=== PATIENT | female | born 1955 | race Hispanic/Latino ===

== ENCOUNTER 2018-05-27 12:30 | Emergency (ER) | payer OTHER ==
[2018-05-27 13:12] LABS: Urine Blood TRACE (NEG); Urine Glucose NEGATIVE (NEG); Urine Protein NEGATIVE (NEG); Urine Specific Gravity 1.015 (1.005-1.030); Urine pH 6.5 (5.0-7.0)
[2018-05-27 13:22] LABS: Urine Bacteria >50 /HPF (<20); Urine Culture Reflex Order NOT NEEDED; Urine RBC <5 /HPF (NONE SEEN)
[2018-05-27 13:50] LABS: Absolute Lymphocytes (CBC) 4.8 K/uL (0.7-4.9); Absolute Monocytes 0.7 K/uL (0.1-1.3); Absolute Neutrophil 3.7 K/uL (1.8-8.0); Basophils % 0.7 % (0-1.3); Eosinophils % 1.1 % (0-4.4); Hematocrit 42.6 % (36.0-45.0); Lymphocytes % 51.4 % (15.3-44.8); MCH 27.6 pg (27.0-35.0); MCV 82.3 fL (80-100); MPV 9.8 fL (7.6-11.3); Monocytes % 7.5 % (3.3-12.3); RBC Red Blood Cell Count 5.18 M/uL (3.86-4.86)
[2018-05-27 14:01] LABS: Albumin 3.7 g/dL (3.4-5.0); Bilirubin Direct 0.2 mg/dL (0-0.2); Bilirubin Total 0.5 mg/dL (0.2-1.0); Potassium 4.2 mmol/L (3.5-5.1); Protein, Total 8.1 g/dL (6.4-8.2)
--- NOTE | 2018-05-27 16:47 | ER ---
Nurse's Notes [facility] Name: Nancy Burgos Age: 63 yrs Sex: Female : 1955 Arrival Date: 05/27/2018 Time: 12:34 Bed 5 Private MD: Diagnosis: Cystitis;Vaginitis, vulvitis and vulvovaginitis in diseases classified elsewhere Presentation: 05/27 12:44 Presenting complaint: Patient states: burning with urination, lower abd pain, and lower aa5 back pain that began 5 days ago. pt states "I think I also have a vaginal infection". Pt states "my stool was black and with blood this morning ". Transition of care: patient was not received from another setting of care. Onset of symptoms was May 2018. Risk Assessment: Do you want to hurt yourself or someone else? Patient reports no desire to harm self or others. Initial Sepsis Screen: Does the patient meet any 2 criteria? No. Patient's initial sepsis screen is negative. Does the patient have a suspected source of infection? No. Patient's initial sepsis screen is negative. Care prior to arrival: None. 12:44 Method Of Arrival: Ambulatory aa5 12:44 Acuity: ZAINAB 3 aa5 Historical: - Allergies: 12:47 No Known Allergies; aa5 - PMHx: 12:47 Diabetes - IDDM; Breast Cancer; aa5 - PSHx: 12:47 left mastectomy; Appendectomy; Cholecystectomy; Tonsillectomy; aa5 - Immunization history:: Pneumococcal vaccine is not up to date, Flu vaccine is not up to date. - Social history:: Smoking status: Patient/guardian denies using tobacco. - Ebola Screening: : No symptoms or risks identified at this time. Screenin:10 Abuse screen: Denies threats or abuse. Denies injuries from another. Nutritional sg screening: No deficits noted. Tuberculosis screening: No symptoms or risk factors identified. Never had TB. Fall Risk None identified. Assessment: 13:10 General: Appears in no apparent distress. comfortable, well groomed, well developed, sg well nourished, Behavior is calm, cooperative, appropriate for age. Pain: Complains of pain in right lower quadrant and left lower quadrant Quality of pain is described as aching, sharp. Neuro: Level of Consciousness is awake, alert, obeys commands, Oriented to person, place, time, situation, Nursery Supervisor are equal bilaterally Moves all extremities. Full function Gait is steady, Speech is normal, Facial symmetry appears normal. Cardiovascular: Capillary refill is brisk in bilateral fingers Patient's skin is warm and dry. Respiratory: Respiratory effort is even, unlabored, Respiratory pattern is regular, symmetrical. Respiratory:. GI: No signs and/or symptoms were reported involving the gastrointestinal system. : Reports pain in bilateral flank(s), with urination, urinary frequency. EENT: No signs and/or symptoms were reported regarding the EENT system. Derm: Skin is pink, warm \\T\\ dry. Musculoskeletal: No signs and/or symptoms reported regarding the musculoskeletal system. 14:15 Reassessment: Patient appears in no apparent distress at this time. Patient and/or tl3 family updated on plan of care and expected duration. Pain level reassessed. Patient is alert, oriented x 3, equal unlabored respirations, skin warm/dry/pink. no needs at this time. Vital Signs: 12:47 BP 146 / 82; Pulse 74; Resp 16 S; Temp 98.8(O); Pulse Ox 97% on R/A; Weight 72.12 kg aa5 (R); Height 5 ft. 4 in. (162.56 cm) (R); Pain 5/10; 14:15 BP 129 / 71; Pulse 70; Resp 18; Pulse Ox 97% ; tl3 15:30 BP 118 / 78; Pulse 72; Resp 18; Pulse Ox 98% on R/A; ph 16:44 BP 122 / 64; Pulse 71; Resp 18; Temp 97.9; Pulse Ox 99% on R/A; ph 12:47 Body Mass Index 27.29 (72.12 kg, 162.56 cm) aa5 ED Course: 12:34 Patient arrived in ED. mr 12:46 Triage completed. aa5 12:46 Arm band placed on. aa5 12:58 Casey Robertson MD is Attending Physician. gs 13:22 Urine collected: clean catch specimen, clear, yellow colored urine. sg 13:23 Missed attempt(s): 20 gauge in right antecubital area. Bleeding controlled, band aid em1 applied, catheter tip intact. 13:30 Brissa De Leon RN is Primary Nurse. ph 13:35 Initial lab(s) drawn, by me, sent to lab. Inserted saline lock: 20 gauge in right iw antecubital area, using aseptic technique. Blood collected. 14:15 Patient has correct armband on for positive identification. Bed in low position. Call tl3 light in reach. Side rails up X 1. Pulse ox on. NIBP on. Warm blanket given. 14:15 No provider procedures requiring assistance completed. tl3 16:44 Assist provider with pelvic exam: Set up pelvic tray. Performed by Casey Robertson MD ph Specimens sent to lab. Patient tolerated well. Administered Medications: No medications were administered Outcome: 16:47 Discharge ordered by . al 17:12 Patient left the ED. ph Addendum: 05/30/2018 12:06 Addendum: Culture Results: Positive urine culture. Phone call Attempt #1 left voicemail.h b 13:05 Addendum: Culture Results: Positive urine culture. Prescription called-in to pharmacy [facility]. Spoke with daughter, Macrobid 100mg BID x [facility] Signatures: Jamison Contreras, RN RN Noemi Raymundo Irene, RN Panchito Sánchez em1 Jenny Washington RN KUSH aa5 Brissa De Leon RN RN Christianne Willingham, RN Casey Castaneda MD MD Bree Chandler RN RN tl3
--- NOTE | 2018-05-27 16:48 | EDPHYS ---
Physician Documentation [facility] Name: Nancy Burgos Age: 63 yrs Sex: Female : 1955 Arrival Date: 05/27/2018 Time: 12:34 Bed 5 Private MD: ED Physician Casey Robertson HPI: 05/27 18:29 This 63 yrs old Female presents to ER via Ambulatory with complaints of gs Urinary Problem,. 18:30 Onset: The symptoms/episode began/occurred 2 day(s) ago. Associated signs and symptoms: gs Pertinent positives: constipation, dysuria, vaginal discharge. Severity of symptoms: At their worst the symptoms were moderate, in the emergency department the symptoms are unchanged. The patient has experienced similar episodes in the past, a few times. Historical: - Allergies: 12:47 No Known Allergies; aa5 - PMHx: 12:47 Diabetes - IDDM; Breast Cancer; aa5 - PSHx: 12:47 left mastectomy; Appendectomy; Cholecystectomy; Tonsillectomy; aa5 - Immunization history:: Pneumococcal vaccine is not up to date, Flu vaccine is not up to date. - Social history:: Smoking status: Patient/guardian denies using tobacco. - Ebola Screening: : No symptoms or risks identified at this time. ROS: 18:30 Abdomen/GI: Positive for black/tarry stool. gs 18:30 All other systems are negative. Exam: 18:30 Head/Face: Normocephalic, atraumatic. Eyes: Pupils equal round and reactive to light, gs extra-ocular motions intact. Lids and lashes normal. Conjunctiva and sclera are non-icteric and not injected. Cornea within normal limits. Periorbital areas with no swelling, redness, or edema. ENT: Nares patent. No nasal discharge, no septal abnormalities noted. Tympanic membranes are normal and external auditory canals are clear. Oropharynx with no redness, swelling, or masses, exudates, or evidence of obstruction, uvula midline. Mucous membranes moist. Neck: Trachea midline, no thyromegaly or masses palpated, and no cervical lymphadenopathy. Supple, full range of motion without nuchal rigidity, or vertebral point tenderness. No Meningismus. Chest/axilla: Normal chest wall appearance and motion. Nontender with no deformity. No lesions are appreciated. Cardiovascular: Regular rate and rhythm with a normal S1 and S2. No gallops, murmurs, or rubs. Normal PMI, no JVD. No pulse deficits. Respiratory: Lungs have equal breath sounds bilaterally, clear to auscultation and percussion. No rales, rhonchi or wheezes noted. No increased work of breathing, no retractions or nasal flaring. Back: No spinal tenderness. No costovertebral tenderness. Full range of motion. MS/ Extremity: Pulses equal, no cyanosis. Neurovascular intact. Full, normal range of motion. Neuro: Awake and alert, GCS 15, oriented to person, place, time, and situation. Cranial nerves II-XII grossly intact. Motor strength 5/5 in all extremities. Sensory grossly intact. Cerebellar exam normal. Normal gait. 18:30 Constitutional: The patient appears alert, awake. 18:30 Abdomen/GI: Palpation: mild abdominal tenderness, in the suprapubic area. 18:30 Abdomen/GI: Rectal exam: Stool: normal, guaiac negative. 18:30 Back: CVA tenderness, is absent. 18:30 : Pelvic Exam: External exam: is normal, Speculum exam: no cervicitis, bimanual exam reveals no cervical motion tenderness, discharge, white, no cmt white dc will send for culture treat uti and vaginitis. Vital Signs: 12:47 BP 146 / 82; Pulse 74; Resp 16 S; Temp 98.8(O); Pulse Ox 97% on R/A; Weight 72.12 kg aa5 (R); Height 5 ft. 4 in. (162.56 cm) (R); Pain 5/10; 14:15 BP 129 / 71; Pulse 70; Resp 18; Pulse Ox 97% ; tl3 15:30 BP 118 / 78; Pulse 72; Resp 18; Pulse Ox 98% on R/A; ph 16:44 BP 122 / 64; Pulse 71; Resp 18; Temp 97.9; Pulse Ox 99% on R/A; ph 12:47 Body Mass Index 27.29 (72.12 kg, 162.56 cm) aa5 MDM: 13:11 Patient medically screened. gs 18:30 Differential diagnosis: nonspecific abdominal pain, pelvic inflammatory disease, gs urinary tract infection, gi bleed. Data reviewed: vital signs, nurses notes. Response to treatment: the patient's symptoms have markedly improved after treatment, and as a result, I will discharge patient. 05/27 12:59 Order name: Urine Culture 05/27 12:59 Order name: Urine Microscopic Only; Complete Time: 14:12 gs 05/27 13:05 Order name: Basic Metabolic Panel; Complete Time: 14:12 gs 05/27 13:05 Order name: CBC with Diff; Complete Time: 14:12 05/27 13:05 Order name: Hepatic Function; Complete Time: 14:12 05/27 13:05 Order name: Lipase; Complete Time: 14:12 05/27 12:59 Order name: Urine Dipstick-Ancillary (obtain specimen); Complete Time: 13:18 05/27 13:05 Order name: IV Saline Lock; Complete Time: 13:18 05/27 13:05 Order name: Labs collected and sent; Complete Time: 13:18 gs 05/27 13:07 Order name: Urine Dipstick--Ancillary (enter results); Complete Time: 14:12 05/27 15:58 Order name: Pelvic Exam Setup; Complete Time: 15:59 gs Administered Medications: No medications were administered Disposition: 05/27/18 16:47 Discharged to Home. Impression: Cystitis, Vaginitis, vulvitis and vulvovaginitis in diseases classified elsewhere. - Condition is Stable. - Discharge Instructions: Urinary Tract Infection, Adult, Vaginitis. - Prescriptions for Flagyl 500 mg Oral Tablet - take 1 tablet by ORAL route every 12 hours for 7 days; 14 tablet. Keflex 500 mg Oral Capsule - take 1 capsule by ORAL route 3 times per day for 7 days; 21 capsule. - Medication Reconciliation Form, Thank You Letter, Antibiotic Education, Prescription Opioid Use form. - Follow up: Private Physician; When: 2 - 3 days; Reason: Re-evaluation by your physician. Signatures: Dispatcher [employer] Jenny Eckert RN RN aa5 Brissa De Leon RN RN ph Casey Robertson MD MD Corrections: (The following items were deleted from the chart) 17:12 16:47 05/27/2018 16:47 Discharged to Home. Impression: Cystitis; Vaginitis, vulvitis ph and vulvovaginitis in diseases classified elsewhere. Condition is Stable. Forms are Medication Reconciliation Form, Thank You Letter, Antibiotic Education, Prescription Opioid Use. Follow up: Private Physician; When: 2 - 3 days; Reason: Re-evaluation by your physician. gs
== END 2018-05-27 17:12 | disposition home or self-care (01) ==
LOC: ER 12:30
DX: N30.90 Cystitis, unspecified without hematuria (principal); N77.1 Vaginitis, vulvitis and vulvovaginitis in diseases classified elsewhere; Z85.3 Personal history of malignant neoplasm of breast
CPT/HCPCS: 36415; 80048; 80076; 81003; 81015; 83690; 85025; 87077; 87086; 87088; 87186; 99284

== ENCOUNTER 2020-06-26 21:40 | Emergency (ER) | payer MEDICARE ==
--- OUTSIDE RECORDS SUMMARY | 2020-06-26 21:43 | XMS REPORT | Continuity of Care Document ---
:1955 Author Organization [facility] t Address [address] [place] [address] [place] [id number] Care Team Providers Name Role Phone Unavailable Unavailable Unavailable Problems This patient has no known problems. Allergies, Adverse Reactions, Alerts This patient has no known allergies or adverse reactions. Medications This patient has no known medications. Procedures This patient has no known procedures. Results This patient has no known results.
[2020-06-26 22:18] LABS: Urine Blood NEGATIVE (NEG); Urine Glucose 3+ (NEG); Urine Protein NEGATIVE (NEG); Urine pH 7.5 (5.0-7.0)
[2020-06-26 22:47] LABS: Absolute Lymphocytes (CBC) 4.1 K/uL (0.7-4.9); MPV 9.8 fL (7.6-11.3)
[2020-06-26 22:50] LABS: Basophils % 0.6 % (0-1.3); Hematocrit 37.8 % (36.0-45.0); Lymphocytes % 62.6 % (15.3-44.8); RBC Red Blood Cell Count 4.59 M/uL (3.86-4.86)
[2020-06-26 23:08] LABS: ALT/SGPT 40 U/L (12-78); AST/SGOT 32 U/L (15-37); Albumin 3.4 g/dL (3.4-5.0); Alkaline Phosphatase 72 U/L (45-117); BUN Blood Urea Nitrogen 14 mg/dL (7-18); Bicarbonate 27 mmol/L (21-32); Bilirubin Direct 0.1 mg/dL (0-0.2); Bilirubin Total 0.5 mg/dL (0.2-1.0); Glucose Level 380 mg/dL (74-106); Magnesium 1.9 mg/dL (1.8-2.4); NT PRO-BNP 20 pg/mL (<125); Potassium 4.3 mmol/L (3.5-5.1); Protein, Total 7.5 g/dL (6.4-8.2); Sodium Level 137 mmol/L (136-145); Troponin (Emerg Dept Use Only) < 0.02 ng/mL (0.0-0.045)
[2020-06-26] MEDS ORDERED: NA CHLORIDE 0.9% 1,000 ML ONE (23:09)
[2020-06-26 23:13] LABS: Protime INR 1.12
[2020-06-26 23:56] LABS: Blood Morphology Comment NOT SEEN (NOT SEEN); Platelet Estimate ADEQ
[2020-06-27] MEDS ORDERED: INSULIN -REGULAR HUMAN 50 UNIT/0.5 ML ML ONE (00:32)
[2020-06-27] MEDS ORDERED: MECLIZINE HCL 12.5 MG TAB ONE (01:08)
--- NOTE | 2020-06-27 01:21 | ER ---
Nurse's Notes [facility] Name: Nancy Burgos Age: 65 yrs Sex: Female : 1955 Arrival Date: 06/26/2020 Time: 21:42 Bed 14 Private MD: Diagnosis: Vertigo;Diabetes with Hyperglycemia Presentation: 06/26 21:50 Chief complaint: Patient states: Dizziness and weakness for 3 weeks. Sugar today is ll1 above 500. States she just doesn't feel well. + constipation. No fever or cough. Coronavirus screen: Client denies travel out of the [place] in the last 14 days. fatigue, Client presents with at least one sign or symptom that may indicate coronavirus-19. Standard/surgical mask placed on the client. Ebola Screen: Patient denies travel to an Ebola-affected area in the 21 days before illness onset. Initial Sepsis Screen: Does the patient meet any 2 criteria? No. Patient's initial sepsis screen is negative. Does the patient have a suspected source of infection? No. Patient's initial sepsis screen is negative. Risk Assessment: Do you want to hurt yourself or someone else? Patient reports no desire to harm self or others. Onset of symptoms was June 06, 2020. 21:50 Method Of Arrival: Ambulatory ll1 21:50 Acuity: ZAINAB 2 ll1 Historical: - Allergies: 21:52 No Known Allergies; ll1 - PMHx: 21:52 Diabetes - IDDM; breast cancer; Hypertension; ll1 - PSHx: 21:52 left mastectomy; Appendectomy; Cholecystectomy; Tonsillectomy; ll1 - Immunization history:: Flu vaccine is not up to date. - Social history:: Smoking status: Patient denies any tobacco usage or history of. Screenin:00 Abuse screen: Denies threats or abuse. Nutritional screening: No deficits noted. jb4 Tuberculosis screening: No symptoms or risk factors identified. Fall Risk None identified. Assessment: 22:00 General: Appears in no apparent distress. comfortable, Behavior is calm, cooperative, jb4 appropriate for age. Pain: Denies pain. Neuro: Level of Consciousness is awake, alert, obeys commands, Oriented to person, place, time, situation. Cardiovascular: Patient's skin is warm and dry. Respiratory: Airway is patent Respiratory effort is even, unlabored, Respiratory pattern is regular, symmetrical. GI: No signs and/or symptoms were reported involving the gastrointestinal system. : No signs and/or symptoms were reported regarding the genitourinary system. EENT: No signs and/or symptoms were reported regarding the EENT system. Derm: Skin is intact, Skin is pink, warm \T\ dry. Musculoskeletal: Circulation, motion, and sensation intact. Range of motion: intact in all extremities. 23:00 Reassessment: Patient appears in no apparent distress at this time. Patient and/or jb4 family updated on plan of care and expected duration. Pain level reassessed. Patient is alert, oriented x 3, equal unlabored respirations, skin warm/dry/pink. 06/27 00:00 Reassessment: Patient appears in no apparent distress at this time. Patient and/or jb4 family updated on plan of care and expected duration. Pain level reassessed. Patient is alert, oriented x 3, equal unlabored respirations, skin warm/dry/pink. 01:00 Reassessment: Patient appears in no apparent distress at this time. Patient and/or jb4 family updated on plan of care and expected duration. Pain level reassessed. Patient is alert, oriented x 3, equal unlabored respirations, skin warm/dry/pink. 01:42 Reassessment: Patient appears in no apparent distress at this time. Patient and/or jb4 family updated on plan of care and expected duration. Pain level reassessed. Patient is alert, oriented x 3, equal unlabored respirations, skin warm/dry/pink. Vital Signs: 06/26 21:50 BP 133 / 76; Pulse 86; Resp 18; Temp 98.0; Pulse Ox 97% ; Weight 66.68 kg; Height 5 ft. ll1 2 in. (160 cm); Pain 0/10; 23:00 BP 117 / 63; Pulse 90; Resp 16; Pulse Ox 95% on R/A; jb4 23:30 BP 129 / 72; Pulse 71; Resp 16; Pulse Ox 96% on R/A; jb4 06/27 00:15 BP 118 / 71; Pulse 71; Resp 16; Pulse Ox 97% on R/A; jb4 01:00 BP 126 / 77; Pulse 73; Resp 16; Pulse Ox 97% on R/A; jb4 06/26 21:50 Body Mass Index 26.05 (66.68 kg, 160 cm) ll1 ED Course: 06/26 21:42 Patient arrived in ED. bp1 21:52 Triage completed. ll1 21:52 Arm band placed on Patient placed in an exam room, on a stretcher. ll1 21:55 Hi Hess MD is Attending Physician. mh7 22:00 Patient has correct armband on for positive identification. Placed in gown. Bed in low jb4 position. Call light in reach. Side rails up X 1. Pulse ox on. NIBP on. 22:00 Urine collected: clean catch specimen, clear, kizzy colored. jp3 22:00 Patient maintains SpO2 saturation greater than 95% on room air. jp3 22:02 Ollie Thomas, RN is Primary Nurse. jb4 22:35 Initial lab(s) drawn, by me, sent to lab. Inserted saline lock: 20 gauge in right jp3 antecubital area, using aseptic technique. Blood collected. 23:26 XRAY Chest (1 view) In Process Unspecified. EDMS 23:43 CT Head Brain wo Cont In Process Unspecified. EDMS 06/27 01:44 No provider procedures requiring assistance completed. IV discontinued, intact, jb4 bleeding controlled, No redness/swelling at site. Pressure dressing applied. Administered Medications: 06/26 23:00 Drug: NS 0.9% 1000 ml Route: IV; Rate: 1000 ml; Site: right antecubital; jb4 06/27 00:07 Follow up: Response: No adverse reaction; IV Status: Completed infusion; IV Intake: jb4 1000ml 00:22 Drug: Insulin Regular Human 6 units {Co-Signature: jb4 (Ollie Thomas RN).} Route: ad1 Sub-Q; Site: abdomen; :22 Follow up: Response: No adverse reaction; Blood sugar is lowered jb4 00:57 Drug: Meclizine 25 mg Route: PO; jb4 01:45 Follow up: Response: No adverse reaction; Marked relief of symptoms jb4 Intake: 00:07 IV: 1000ml; Total: 1000ml. jb4 Outcome: :21 Discharge ordered by . 7 01:44 Discharged to home ambulatory, with family. jb4 01:44 Condition: stable 01:44 Discharge instructions given to patient, Instructed on discharge instructions, follow up and referral plans. medication usage, Demonstrated understanding of instructions, follow-up care, medications, Prescriptions given X 1. 01:45 Patient left the ED. jb4 Signatures: Dispatcher [employer] EDMS Chrissy Lees RN RN ad1 Ollie Thomas RN RN jb4 Humberto Antony jp3 Chase Sheikh RN RN ll1 Jennifer Dean Maurice, MD MD mh7 Ollie Thomas RN jb4
--- NOTE | 2020-06-27 01:22 | EDPHYS ---
Physician Documentation [facility] Name: Nancy Burgos Age: 65 yrs Sex: Female : 1955 Arrival Date: 06/26/2020 Time: 21:42 Bed 14 Private MD: ED Physician Hi Hess HPI: 06/26 22:48 This 65 yrs old Female presents to ER via Ambulatory with complaints of mh7 Dizziness, High Blood Sugar. 22:48 The patient presents with dizziness, sense of spinning. Onset: The symptoms/episode mh7 began/occurred 3 week(s) ago. Context: occurred at an unknown location, occurred while the patient was sitting, just prior to the episode the patient experienced no apparent symptoms. Modifying factors: The symptoms are alleviated by nothing, the symptoms are aggravated by movement of head. Associated signs and symptoms: Pertinent positives: Pertinent negatives: abdominal pain, agitation, ataxia, blurred vision, chest pain, combativeness, confusion, diaphoresis, focal weakness, head injury, headache, nausea, near-syncope, numbness, palpitations, , seizure, shortness of breath, syncope, tingling, vomiting. Associated signs and symptoms: Pertinent positives: urinary frequency, increased thirst, elevated blood sugar. Severity of symptoms: At their worst the symptoms were moderate 5 day(s) ago, in the emergency department the symptoms have improved moderately. Historical: - Allergies: 21:52 No Known Allergies; ll1 - PMHx: 21:52 Diabetes - IDDM; breast cancer; Hypertension; ll1 - PSHx: 21:52 left mastectomy; Appendectomy; Cholecystectomy; Tonsillectomy; ll1 - Immunization history:: Flu vaccine is not up to date. - Social history:: Smoking status: Patient denies any tobacco usage or history of. ROS: 22:48 Constitutional: Negative for fever, chills, and weight loss, Eyes: Negative for injury, mh7 pain, redness, and discharge, ENT: Negative for injury, pain, and discharge, Neck: Negative for injury, pain, and swelling, Cardiovascular: Negative for chest pain, palpitations, and edema, Respiratory: Negative for shortness of breath, cough, wheezing, and pleuritic chest pain, Abdomen/GI: Negative for abdominal pain, nausea, vomiting, diarrhea, and constipation, Back: Negative for injury and pain, MS/Extremity: Negative for injury and deformity, Skin: Negative for injury, rash, and discoloration, Psych: Negative for depression, anxiety, suicide ideation, homicidal ideation, and hallucinations, Allergy/Immunology: Negative for hives, rash, and allergies, Hematologic/Lymphatic: Negative for swollen nodes, abnormal bleeding, and unusual bruising. Exam: 22:48 Constitutional: This is a well developed, well nourished patient who is awake, alert, mh7 and in no acute distress. Head/Face: Normocephalic, atraumatic. Eyes: Pupils equal round and reactive to light, extra-ocular motions intact. Lids and lashes normal. Conjunctiva and sclera are non-icteric and not injected. Cornea within normal limits. Periorbital areas with no swelling, redness, or edema. ENT: Nares patent. No nasal discharge, no septal abnormalities noted. Tympanic membranes are normal and external auditory canals are clear. Oropharynx with no redness, swelling, or masses, exudates, or evidence of obstruction, uvula midline. Mucous membranes moist. Neck: Trachea midline, no thyromegaly or masses palpated, and no cervical lymphadenopathy. Supple, full range of motion without nuchal rigidity, or vertebral point tenderness. No Meningismus. Chest/axilla: Normal chest wall appearance and motion. Nontender with no deformity. No lesions are appreciated. Cardiovascular: Regular rate and rhythm with a normal S1 and S2. No gallops, murmurs, or rubs. Normal PMI, no JVD. No pulse deficits. Respiratory: Lungs have equal breath sounds bilaterally, clear to auscultation and percussion. No rales, rhonchi or wheezes noted. No increased work of breathing, no retractions or nasal flaring. Abdomen/GI: Soft, non-tender, with normal bowel sounds. No distension or tympany. No guarding or rebound. No evidence of tenderness throughout. Back: No spinal tenderness. No costovertebral tenderness. Full range of motion. Skin: Warm, dry with normal turgor. Normal color with no rashes, no lesions, and no evidence of cellulitis. MS/ Extremity: Pulses equal, no cyanosis. Neurovascular intact. Full, normal range of motion. Neuro: Awake and alert, GCS 15, oriented to person, place, time, and situation. Cranial nerves II-XII grossly intact. Motor strength 5/5 in all extremities. Sensory grossly intact. Cerebellar exam normal. Normal gait. Psych: Awake, alert, with orientation to person, place and time. Behavior, mood, and affect are within normal limits. Vital Signs: 21:50 BP 133 / 76; Pulse 86; Resp 18; Temp 98.0; Pulse Ox 97% ; Weight 66.68 kg; Height 5 ft. ll1 2 in. (160 cm); Pain 0/10; 23:00 BP 117 / 63; Pulse 90; Resp 16; Pulse Ox 95% on R/A; jb4 23:30 BP 129 / 72; Pulse 71; Resp 16; Pulse Ox 96% on R/A; jb4 06/27 00:15 BP 118 / 71; Pulse 71; Resp 16; Pulse Ox 97% on R/A; jb4 01:00 BP 126 / 77; Pulse 73; Resp 16; Pulse Ox 97% on R/A; 4 06/26 21:50 Body Mass Index 26.05 (66.68 kg, 160 cm) ll1 MDM: 01:17 Differential diagnosis: cardiac arrhythmia, hypovolemia, idiopathic dizziness, mh7 near-syncope, syncope, vertigo, Dizziness. Data reviewed: vital signs, nurses notes, lab test result(s), cardiac enzymes, CBC, electrolytes, urinalysis, EKG, radiologic studies, CT scan, plain films. Data interpreted: Pulse oximetry: on room air is 96 %. Interpretation: normal. Counseling: I had a detailed discussion with the patient and/or guardian regarding: the historical points, exam findings, and any diagnostic results supporting the discharge/admit diagnosis, lab results, radiology results, the need for outpatient follow up, to return to the emergency department if symptoms worsen or persist or if there are any questions or concerns that arise at home. Response to treatment: the patient's symptoms have markedly improved after treatment. 01:21 Patient medically screened. [facility] 06/26 22:12 Order name: Urine Dipstick--Ancillary (enter results); Complete Time: 22:19 2 06/26 22:13 Order name: Glucose, Ancillary Testing; Complete Time: 22:19 EDMS 06/26 22:20 Order name: Basic Metabolic Panel; Complete Time: 23:37 [facility] 06/26 22:20 Order name: CBC with Diff; Complete Time: 00:01 [facility] 06/26 22:20 Order name: LFT's; Complete Time: 23:37 7 06/26 22:20 Order name: Magnesium; Complete Time: 23:37 [facility] 06/26 22:20 Order name: NT PRO-BNP; Complete Time: 23:37 [facility] 06/26 22:20 Order name: PT-INR; Complete Time: 23:37 [facility] 06/26 22:20 Order name: Troponin (emerg Dept Use Only); Complete Time: 23:37 7 06/26 22:20 Order name: XRAY Chest (1 view) [facility] 06/26 22:20 Order name: Ketone, Serum; Complete Time: 23:37 [facility] 06/26 23:00 Order name: Manual Differential; Complete Time: 00:01 EDMS 06/27 00:11 Order name: Glucose, Ancillary Testing; Complete Time: 00:20 EDMS 06/27 01:34 Order name: Glucose, Ancillary Testing [facility] 06/26 22:20 Order name: EKG; Complete Time: 22:21 [facility] 06/26 22:20 Order name: Cardiac monitoring; Complete Time: 22:41 [facility] 06/26 22:20 Order name: EKG - Nurse/Tech; Complete Time: 23:10 [facility] 06/26 22:20 Order name: IV Saline Lock; Complete Time: 22:41 [facility] 06/26 22:20 Order name: Labs collected and sent; Complete Time: 22:41 [facility] 06/26 22:20 Order name: O2 Per Protocol; Complete Time: 22:41 [facility] 06/26 22:20 Order name: O2 Sat Monitoring; Complete Time: 22:41 [facility] 06/26 22:21 Order name: CT Head Brain wo Cont [facility] Administered Medications: 06/26 23:00 Drug: NS 0.9% 1000 ml Route: IV; Rate: 1000 ml; Site: right antecubital; 4 06/27 00:07 Follow up: Response: No adverse reaction; IV Status: Completed infusion; IV Intake: jb4 1000ml 00:22 Drug: Insulin Regular Human 6 units {Co-Signature: jb4 (Ollie Thomas RN).} Route: ad1 Sub-Q; Site: abdomen; :22 Follow up: Response: No adverse reaction; Blood sugar is lowered jb4 00:57 Drug: Meclizine 25 mg Route: PO; jb4 01:45 Follow up: Response: No adverse reaction; Marked relief of symptoms jb4 Disposition: 06/27/20 01:21 Discharged to Home. Impression: Vertigo, Diabetes with Hyperglycemia. - Condition is Stable. - Discharge Instructions: Vertigo, [id number], Hyperglycemia, [id number]. - Prescriptions for Meclizine 25 mg Oral Tablet - take 1 tablet by ORAL route every 8 hours As needed; 30 tablet. - Medication Reconciliation Form, Thank You Letter, Antibiotic Education, Prescription Opioid Use form. - Follow up: Private Physician; When: 1 - 2 days; Reason: Worsening of condition, Recheck today's complaints, Continuance of care, Re-evaluation by your physician. - Problem is an ongoing problem. - Symptoms have improved. Signatures: Dispatcher [employer] EDMS Chrissy Lees RN RN ad1 Ollie Thomas RN RN jb4 Chase Sheikh RN RN 1 Hi Hess MD MD mh7 Ollie Thomas RN jb4 Corrections: (The following items were deleted from the chart) 01:45 01:21 06/27/2020 01:21 Discharged to Home. Impression: Vertigo; Diabetes with jb4 Hyperglycemia. Condition is Stable. Forms are Medication Reconciliation Form, Thank You Letter, Antibiotic Education, Prescription Opioid Use. Follow up: Private Physician; When: 1 - 2 days; Reason: Worsening of condition, Recheck today's complaints, Continuance of care, Re-evaluation by your physician. Problem is an ongoing problem. Symptoms have improved. mh7
[2020-06-27 08:06] VITALS: TEMP 98
[2020-06-27 08:12] VITALS: O2SAT 97
[2020-06-27 08:14] VITALS: BP 126/77
--- NOTE | 2020-06-27 10:53 | RAD REPORT ---
EXAM DESCRIPTION: RAD - Chest Single View - 06/26/2020 11:26 pm CLINICAL HISTORY: Dizziness Chest pain. COMPARISON: No comparisons FINDINGS: Portable technique limits examination quality. The lungs are grossly clear. The heart is normal in size. No displaced fractures.Cervical hardware pl ate is present. Left axillary emelia dissection clips. IMPRESSION: No acute intrathoracic process suspected.
--- NOTE | 2020-06-27 13:34 | RAD REPORT ---
CLINICAL HISTORY: 65-year-old female with dizziness and weakness for three weeks. COMPARISON: None. TECHNIQUE: CT brain without contrast. This exam was performed according to our departmental dose opt imization program which includes use of automated exposure control, adjustment of the mA and/or kV ac cording to patient size and/or use of iterative reconstruction technique. FINDINGS: Multifocal regions of patchy hypoattenuation are present in a subcortical and periventricu lar deep white matter distribution, nonspecific; however, most likely represent small vessel ischemic disease, age indeterminate. The ventricles, and sulci are prominent compatible with underlying volume loss. The draper-white betito er differentiation is preserved. There is no mass effect, midline shift, intra- or extra-axial flui d collection/acute hemorrhage. The osseous structures are unremarkable. The paranasal sinuses and mastoid air cells are clear. IMPRESSION: 1. No acute intracranial abnormalities. Nonspecific white matter change most likely sm all vessel ischemic disease, age indeterminate. 2. CT is insensitive for early evaluation of acute stroke. If there is clinical concern for acute ischemia, an MRI may be considered. Electronically signed by: Janet Delacruz MD 06/27/2020 12:07 AM CIRCLE CUTTING SAW OPERATOR Due to temporary technical issues with the PACS/Fluency reporting system, reports are being signed by the in house radiologists without review as a courtesy to insure prompt reporting. The interpreting radiologist is fully responsible for the content of the report.
== END 2020-06-27 01:45 | disposition home or self-care (01) ==
LOC: ER 21:40
DX: E11.65 Type 2 diabetes mellitus with hyperglycemia (principal); I10 Essential (primary) hypertension; Z85.3 Personal history of malignant neoplasm of breast
CPT/HCPCS: 93005; 85025; 80048; 36415; 82010; 83735; 85610; 82947 ×3; 80076; 81003; 84484; 83880; 70450; 71045; 96360; 96372; 99284; J7030

== ENCOUNTER 2021-09-21 09:50 | Emergency (ER) | payer MEDICARE ==
--- OUTSIDE RECORDS SUMMARY | 2021-09-21 09:52 | XMS REPORT | Continuity of Care Document ---
:[address] [facility] t Address [address] [place] [address] Care Team Providers Name Role Phone Mehta_N Attending Clinician Unavailable Sudireddy_R Attending Clinician Unavailable Anderson_C Attending Clinician Unavailable Adejumo_K Attending Clinician Unavailable Supriya Sanders RN Attending Clinician Unavailable Only, Test Attending Clinician Unavailable Iveth OSPINA Attending Clinician IVETH Attending Clinician Unavailable Jhaver_N Attending Clinician Unavailable Doctor Unassigned, Name Attending Clinician Unavailable Bartsch_E Attending Clinician Unavailable Mehta_N Admitting Clinician Unavailable Sudireddy_R Admitting Clinician Unavailable Anderson_C Admitting Clinician Unavailable Adejumo_K Admitting Clinician Unavailable Jhaver_N Admitting Clinician Unavailable Bartsch_E Admitting Clinician Unavailable Payers Payer Name Policy Type Policy Number Effective Date Expiration Date jose [facility] [id number] 2020 (MEDICARE 00:00:00 REPLACEMENT HMO) Problems This patient has no known problems. Allergies, Adverse Reactions, Alerts Allergy Allergy Status Severity Reaction(s) Onset Inactive Treating Comm ents Source Name Type Date Date Clinician NO KNOWN Drug Active Univers ALLERGIE Class [facility] of [facility] Social History Social Habit Start Date Stop Date Quantity Comments Source [facility] Smoking Status Start Date Stop Date Source Never Smoker [facility] Unknown if ever smoked [facility] Medications Ordered Filled Start Stop Current Ordering Indication Dosage Frequency Signature Comments Components Source Medication Medication Date Date Medication? Clinician (SIG) Name Name omega-3 omega-3 No omega-3 [facility] acid ethyl acid ethyl acid ethyl Family esters 1 esters 1 esters 1 Pra ctic gram gram gram e capsule capsule capsule TAKE 2 TAKE 2 TAKE 2 CAPSULES BY CAPSULES BY CAPSULES MOUTH TWICE MOUTH TWICE BY MOUTH DAILY DAILY TWICE DAILY omeprazole omeprazole No omeprazole [facility] 20 mg 20 mg 20 mg Family capsule,del capsule,del capsule,de Practic ayed ayed layed e release release release TAKE 1 TAKE 1 TAKE 1 CAPSULE BY CAPSULE BY CAPSULE BY MOUTH ONCE MOUTH ONCE MOUTH ONCE DAILY DAILY DAILY OneTouch OneTouch No OneTouch Ashley paolo Delica Plus Delica Plus [facility] Family Lancet 33 Lancet 33 Plus Pract ic gauge gauge Lancet 33 e gauge OneTouch OneTouch No OneTouch Ashley paolo Ultra Blue Ultra Blue Ultra Blue Family Test Strip Test Strip Test Strip Practic e Ozempic Ozempic No Ozempic [facility] 0.25 mg or 0.25 mg or 0.25 mg or Family 0.5 mg (2 0.5 mg (2 0.5 mg (2 Practic mg/1.5 mL) mg/1.5 mL) mg/1.5 mL) e subcutaneou subcutaneou subcutaneo s pen s pen us pen injector injector injector INJECT INJECT INJECT 0.25MG 0.25MG 0.25MG WEEKLY WEEKLY WEEKLY UNDER THE UNDER THE UNDER THE SKIN FOR 2 SKIN FOR 2 SKIN FOR 2 WEEKS THEN WEEKS THEN WEEKS THEN INCREASE TO INCREASE TO INCREASE 0.5MG 0.5MG TO 0.5MG WEEKLY WEEKLY WEEKLY Restasis Restasis No Restasis Ashley paolo 0.05 % eye 0.05 % eye 0.05 % eye Family drops in a drops in a drops in a Practic dropperette dropperette dropperett e INSTILL 1 INSTILL 1 e INSTILL DROP INTO DROP INTO 1 DROP EACH EYE EACH EYE INTO EACH TWICE DAILY TWICE DAILY EYE TWICE DAILY rosuvastati rosuvastati No rosuvastat [facility] n 20 mg n 20 mg in 20 mg Famil y tablet TAKE tablet TAKE tablet Practic 1 TABLET BY 1 TABLET BY TAKE 1 e MOUTH ONCE MOUTH ONCE TABLET BY DAILY DAILY MOUTH ONCE DAILY tolterodine tolterodine No tolterodin [facility] ER 2 mg ER 2 mg e ER 2 mg Fami ly capsule,ext capsule,ext capsule,ex Practic ended ended tended e release 24 release 24 release 24 hr TAKE 1 hr TAKE 1 hr TAKE 1 CAPSULE BY CAPSULE BY CAPSULE BY MOUTH ONCE MOUTH ONCE MOUTH ONCE DAILY FOR DAILY FOR DAILY FOR 30 DAYS 30 DAYS 30 DAYS Xiidra 5 % Xiidra 5 % No Xiidra 5 % [facility] eye drops eye drops eye drops Family in a in a in a Practic dropperette dropperette dropperett e e Basaglar Roddyaglar No Basaglar Ashley paolo [facility] U-100 U-100 U-100 Practic Insulin 100 Insulin 100 Insulin e unit/mL (3 unit/mL (3 100 mL) mL) unit/mL (3 subcutaneou subcutaneou mL) s s subcutaneo us BD Insulin BD Insulin No BD Insulin [facility] Syringe Syringe Syringe [facility] Ultra-Fine Ultra-Fine Ultra-Fine Practic 1 mL 31 1 mL 31 1 mL 31 e gauge x gauge x gauge x /16" 16" 12/19" benzonatate benzonatate No benzonatat [facility] 100 mg 100 mg e 100 mg Family capsule capsule capsule Practi c TAKE 1 TAKE 1 TAKE 1 e CAPSULE BY CAPSULE BY CAPSULE BY MOUTH THREE MOUTH THREE MOUTH TIMES DAILY TIMES DAILY THREE NEEDED NEEDED TIMES FOR COUGH FOR COUGH DAILY FOR UP TO 7 FOR UP TO 7 NEEDED FOR DAYS DO NOT DAYS DO NOT COUGH FOR CRUSH OR CRUSH OR UP TO 7 CHEW CHEW DAYS DO NOT CRUSH OR CHEW donepezil donepezil No donepezil [facility] 10 mg 10 mg 10 mg Family tablet tablet tablet Practic e donepezil 5 donepezil 5 No donepezil [facility] mg tablet mg tablet 5 mg Famil y TAKE 1 TAKE 1 tablet Practic TABLET BY TABLET BY TAKE 1 e MOUTH ONCE MOUTH ONCE TABLET BY DAILY DAILY MOUTH ONCE DAILY doxycycline doxycycline No doxycyclin [facility] hyclate 100 hyclate 100 e hyclate Family mg capsule mg capsule 100 mg P ractic TAKE 1 TAKE 1 capsule e CAPSULE BY CAPSULE BY TAKE 1 MOUTH TWICE MOUTH TWICE CAPSULE BY DAILY FOR 7 DAILY FOR 7 MOUTH DAYS DAYS TWICE DAILY FOR 7 DAYS insulin insulin No insulin [facility] lispro lispro lispro [facility] (U-100) 100 (U-100) 100 (U-100) Practic unit/mL unit/mL 100 e subcutaneou subcutaneou unit/mL s pen s pen subcutaneo INJECT 20 INJECT 20 us pen UNITS UNITS INJECT 20 SUBCUTANEOU SUBCUTANEOU UNITS SLY THREE SLY THREE SUBCUTANEO TIMES DAILY TIMES DAILY USLY THREE FOR 90 DAYS FOR 90 DAYS TIMES DAILY FOR 90 DAYS insulin insulin No insulin [facility] lispro lispro lispro Family (U-100) 100 (U-100) 100 (U-100) Practic unit/mL unit/mL 100 e subcutaneou subcutaneou unit/mL s solution s solution subcutaneo us solution letrozole letrozole No letrozole [facility] 2.5 mg 2.5 mg 2.5 mg Family tablet TAKE tablet TAKE tablet Practic 1 TABLET BY 1 TABLET BY TAKE 1 e MOUTH ONCE MOUTH ONCE TABLET BY DAILY DAILY MOUTH ONCE DAILY levothyroxi levothyroxi No levothyrox [facility] ne 75 mcg ne 75 mcg ine 75 mcg Family tablet tablet tablet Practic e losartan losartan No losartan Ashley paolo 100 mg 100 mg 100 mg Family tablet TAKE tablet TAKE tablet Practic 1 TABLET BY 1 TABLET BY TAKE 1 e MOUTH ONCE MOUTH ONCE TABLET BY DAILY DAILY MOUTH ONCE DAILY memantine memantine No memantine [facility] 10 mg 10 mg 10 mg Family tablet TAKE tablet TAKE tablet Practic 1 TABLET BY 1 TABLET BY TAKE 1 e MOUTH TWICE MOUTH TWICE TABLET BY DAILY DAILY MOUTH TWICE DAILY memantine 5 memantine 5 No memantine [facility] mg tablet mg tablet 5 mg Famil y TAKE 1 TAKE 1 tablet Practic TABLET BY TABLET BY TAKE 1 e MOUTH ONCE MOUTH ONCE TABLET BY DAILY DAILY MOUTH ONCE DAILY Vital Signs Vital Name Observation Time Observation Value Comments Source BP Diastolic 2020-09-06 00:00:00 80 mm[Hg] [facility] Height 2020-09-06 00:00:00 63 [in_i] [facility] BMI (Body Mass 2020-09-06 00:00:00 26.7 kg/m2 [facility] Practice BP Systolic 2020-09-06 00:00:00 122 mm[Hg] [facility] Body Weight 2020-09-06 00:00:00 151 [lb_av] [facility] BP Diastolic 2020-08-23 00:00:00 78 mm[Hg] [facility] Height 2020-08-23 00:00:00 63 [in_i] [facility] BMI (Body Mass 2020-08-23 00:00:00 26.9 kg/m2 [facility] BP Systolic 2020-08-23 00:00:00 120 mm[Hg] [facility] Body Weight 2020-08-23 00:00:00 152 [lb_av] [facility] Procedures Procedure Date / Time Performing Clinician Source Performed COVID-19 (MOLECULAR 2020-09-08 19:21:00 Nura Doe [facility] NUCLEIC ACID AMPLIFICATION) ASSIGNMENT OF BENEFITS 2020-09-08 18:56:09 Doctor Unassigned, No [facility] Breast Surgery 2015-09-23 00:00:00 Leonides Hewitt [facility] Practice Removal of Tonsils [facility] Famil y Practice Appendectomy [facility] Family Practice Repair of Meniscus [facility] Famil y Practice Back Surgery [facility] Family Practice Plan of Care Planned Activity Planned Date Details Comments Source Diagnostic Test 2020-09-06 glucose, Leonides westfall Pending 00:00:00 fingerstick, blood Practice [code = glucose, fingerstick, blood] Encounters Start End Encounter Admission Attending Care Care Encounter Source Date/Time Date/Time Type Type Clinicians Facility Department ID 2021-08-17 2021-08-17 Outpatient Mehta_N VFP VFP [id number] [facility] 03:48:00 03:48:00 Family Practic e 2021-07-27 2021-07-27 Outpatient DMG DMG [id number] [facility] 08:00:00 08:00:00 1222 Medica l Group 2021-02-22 2021-02-22 Outpatient Sudireddy_R VFP VFP [id number] [facility] 06:42:00 06:42:00 [id number] Family Practic e 2020-11-21 2020-11-21 Outpatient Anderson_C VFP VFP [id number] [facility] 01:01:00 01:01:00 [id number] Family Practic e 2020-10-17 2020-10-17 Outpatient Anderson_C VFP VFP [id number] [facility] 01:01:00 01:01:00 [id number] Family Practic e 2020-10-06 2020-10-06 Outpatient Adejumo_K VFP VFP [id number] [facility] 03:57:00 03:57:00 [id number] Family Practic e 2020-09-12 2020-09-12 Outpatient Anderson_C VFP VFP [id number] [facility] 01:02:00 01:02:00 [id number] Family Practic e 2020-09-09 2020-09-09 Outpatient Anderson_C VFP VFP [id number] [facility] 07:35:00 07:35:00 [id number] Family Practic e 2020-09-09 2020-09-09 Telephone Bejudith MONTERO [id number] Univers 00:00:00 00:00:00 JUAN Sanders [id number] [facility] [id number] Adam as [id number] [facility] 019 Branch 2020-09-08 2020-09-08 Laboratory Only, Adc Test [facility] [id number] Univers 12:57:19 13:12:19 Only Violeta Lazaro [id number] ity [facility] [id number] [place] [facility] [id number] [facility] 353 Branch 2020-09-08 2020-09-08 Outpatient Thien LAZARO [facility] [id number] Univers 13:00:00 13:00:00 VIOLETA montilla [facility] 2020-09-08 2020-09-08 Outpatient Jhaver_N VFP VFP [id number] [facility] 01:13:00 01:13:00 [id number] Family Practic e 2020-09-08 2020-09-08 Orders Doctor KYLAH [id number] Univers 00:00:00 00:00:00 Only Unassigned, JUAN [id number] ity of [facility] [id number] Adam as [id number] [facility] 009 Branch 2020-09-08 2020-09-08 Letter Doctor KYLAH [id number] Univers 00:00:00 00:00:00 (Out) Unassigned, JUAN [id number] ity of [facility] [id number] Adam as [id number] [facility] 044 Branch 2020-09-06 2020-09-06 Outpatient Adejumo_K VFP VFP [id number] [facility] 12:55:00 12:55:00 [id number] Family Practic e 2020-09-06 2020-09-06 Suresh Perdue VFP [place] - [id number] [facility] 00:00:00 00:00:00 Leonides Hernández MD: [id number] [facility]_SAROJ_Suga e [place] r [facility] [address], ([facility] [place] [address] , Ph. 2020-08-27 2020-08-27 Outpatient Adejumo_K VFP VFP [id number] [facility] 12:48:00 12:48:00 [id number] Family Practic e 2020-08-27 2020-08-27 Outpatient Anderson_C VFP VFP [id number] [facility] 12:48:00 12:48:00 [id number] Family Practic e 2020-08-23 2020-08-23 Outpatient Anderson_C VFP VFP [id number] [facility] 06:04:00 06:04:00 [id number] Family Practic e 2020-08-23 2020-08-23 Cathlyn H VFP [place] - [id number] [facility] 00:00:00 00:00:00 Edgar, [facility] Kash westfall MD: [id number] [facility]_Diana kiara Echavarria r [facility] 175, ([facility] [place] [address] , Ph. 2020-08-20 2020-08-20 Outpatient Bartsch_E VFP VFP [id number] [facility] 12:03:00 12:03:00 [id number] Family Practic e 2020-08-17 2020-08-17 Outpatient Adejumo_K VFP VFP [id number] [facility] 11:45:00 11:45:00 [id number] Family Practic e Results Test Description Test Time Test Comments Results Result Comments Source COVID-19 (MOLECULAR TESTING 2020-09-09 05:47:00 NUCLEIC ACID AMPLIFICATION) Test Item Value Reference Range Interpretation Comme nts SARS-CoV-2 NAAT (test code = Not Detected Not Detected 35724-9) YOSHI (test code = YOSHI) [employer] Aptima SARS-CoV-2 Assay is a nucleic acid amplification test intended for the qualitative detection of RNA from SARS-CoV-2 from nasopharyngeal (MONOTYPE MACHINIST) specimens. ?It is used under Emergency Use Authorization (EUA) by FDA. A positive result is indicative of the presence of SARS-CoV-2 RNA. ?Clinical correlation with patient history and other diagnostic information is necessary to determine patient infection status. A negative (Not Detected) result does not preclude SARS-CoV-2 infection. ?Clinical correlation with patient history and other diagnostic information should be used in patient management decisions. Invalid: Unable to generate a valid test result on this specimen. ?Please submit a new specimen for repeat testing if clinically indicated. Lab Interpretation (test code = Normal 04769-8) [facility]
[2021-09-21 10:09] LABS: Absolute Lymphocytes (CBC) 0.8 K/uL (0.7-4.9); Hematocrit 38.4 % (36.0-45.0); Lymphocytes % 14.2 % (15.3-44.8); MPV 9.8 fL (7.6-11.3); RBC Red Blood Cell Count 4.67 M/uL (3.86-4.86)
[2021-09-21 10:18] LABS: Urine Blood Trace-intact (Negative); Urine Glucose Negative (Negative); Urine Protein Negative (Negative); Urine Specific Gravity 1.015 (1.005-1.030); Urine pH 5.5 (5.0-7.0)
[2021-09-21 10:19] LABS: Protime INR 1.25
[2021-09-21 10:31] LABS: Albumin 3.3 g/dL (3.4-5.0); Bilirubin Direct 0.2 mg/dL (0-0.2); Bilirubin Total 0.5 mg/dL (0.2-1.0); Magnesium 1.8 mg/dL (1.8-2.4); Potassium 4.1 mmol/L (3.5-5.1); Protein, Total 7.8 g/dL (6.4-8.2); Troponin High Sensitivity 10.1 pg/mL (<58.9)
[2021-09-21 10:35] LABS: Urine RBC <5 /HPF (NONE SEEN)
[2021-09-21 10:36] LABS: Urine Bacteria 20-50 /HPF (<20)
--- NOTE | 2021-09-21 11:11 | RAD REPORT ---
EXAM DESCRIPTION: Lupis Single View09/21/2021 10:48 am CLINICAL HISTORY: Fever COMPARISON: 2019 FINDINGS: The lungs appear clear of acute infiltrate. The heart is normal size IMPRESSION: No acute abnormalities displayed
[2021-09-21 12:16] LABS: SARS-COV-2 RT PCR NEGATIVE (NEGATIVE)
[2021-09-21] MEDS ORDERED: NA CHLORIDE 0.9% 100 ML IV ONE (12:35)
[2021-09-21] MEDS ORDERED: CEFTRIAXONE 1000 MG/VIAL ONE (12:35)
--- NOTE | 2021-09-21 13:07 | EDPHYS ---
Physician Documentation [facility] Name: Nancy Burgos Age: 66 yrs Sex: Female : 1955 Arrival Date: 09/21/2021 Time: 09:56 Bed 23 Private MD: ED Physician Sigifredo Linda HPI: 09/21 10:00 This 66 yrs old Female presents to ER via EMS with complaints of Chills. cp 10:00 The patient reports fever, with an emergency department temperature of 100.3 degrees cp Fahrenheit. Patient presents to ED with sudden onset of chills this morning. Family called EMS who reports patient's blood glucose level of 103 and temp of 101. 10:00 Associated signs and symptoms: Pertinent negatives: abdominal pain, altered mental cp status, chest pain, cough, diarrhea, headache, runny nose, skin rash, vomiting. 10:00 Severity of symptoms: in the emergency department the symptoms have improved mildly. cp Historical: - Allergies: 12:39 No Known Allergies; ic1 - Home Meds: 10:22 omeprazole 20 mg Oral cpDR 1 cap once daily [Active]; letrozole 2.5 mg oral tab 1 tab ic1 once daily [Active]; levothyroxine 75 mcg cap 1 cap once daily [Active]; losartan 100 mg oral tab 1 tab once daily [Active]; donepezil 10 mg oral tab 1 tab twice a day [Active]; fenofibrate 160 mg oral tab 1 tab once daily [Active]; rosuvastatin 20 mg oral cpSP 1 cap once daily [Active]; memantine 10 mg oral tab 1 tab 2 times per day [Active]; - PMHx: 10:22 breast cancer; Diabetes - IDDM; Hypertension; ic1 - Immunization history:: Adult Immunizations up to date. - Social history:: Smoking status: Patient denies any tobacco usage or history of. ROS: 10:05 Constitutional: Positive for chills, Negative for body aches, poor PO intake. cp 10:05 ENT: Negative for drainage from ear(s), ear pain, sore throat, difficulty swallowing, difficulty handling secretions. 10:05 Cardiovascular: Negative for chest pain, edema, palpitations. 10:05 Respiratory: Negative for cough, shortness of breath, wheezing. 10:05 Abdomen/GI: Negative for abdominal pain, vomiting, diarrhea, constipation. 10:05 Back: Negative for pain at rest, pain with movement, radiated pain. 10:05 : Negative for urinary symptoms. 10:05 Neuro: Negative for altered mental status, headache, weakness. Exam: 10:10 Constitutional: The patient appears in no acute distress, alert, awake, cp non-diaphoretic, non-toxic, well developed, well nourished. 10:10 Head/Face: Normocephalic, atraumatic. cp 10:10 Eyes: Periorbital structures: appear normal, Pupils: equal, round, and reactive to light and accomodation, Extraocular movements: intact throughout, Conjunctiva: normal, no exudate, no injection, Sclera: no appreciated abnormality, Lids and lashes: appear normal, bilaterally. 10:10 ENT: External ear(s): are unremarkable, Nose: is normal, Mouth: Lips: moist, Oral mucosa: pink and intact, moist, Posterior pharynx: Airway: no evidence of obstruction, patent, Tonsils: are normal in appearance, erythema, is not appreciated, exudate, is not appreciated. 10:10 Neck: ROM/movement: is normal, is supple, without pain, no range of motions limitations. 10:10 Chest/axilla: Inspection: normal. 10:10 Cardiovascular: Rate: tachycardic, Rhythm: regular, Edema: is not appreciated, JVD: is not appreciated. 10:10 Respiratory: the patient does not display signs of respiratory distress, Respirations: normal, no use of accessory muscles, no retractions, labored breathing, is not present, Breath sounds: are clear throughout, no decreased breath sounds, no stridor, no wheezing. 10:10 Abdomen/GI: Inspection: abdomen appears normal, Palpation: abdomen is soft and non-tender, in all quadrants. 10:10 Back: pain, is absent, ROM is normal. 10:10 Skin: cellulitis, is not appreciated, no rash present. 10:10 Neuro: Orientation: to person, place \\T\\ time. Mentation: is normal, Motor: moves all fours, strength is normal, Sensation: is normal. 10:45 ECG was reviewed by the Attending Physician. cp Vital Signs: 09:45 BP 122 / 58; Pulse 101; Resp 16; Pulse Ox 96% on R/A; ic1 10:37 Temp 100.3(O); ic1 12:39 BP 110 / 58; Pulse 101; Resp 16; Pulse Ox 95% on R/A; ic1 13:10 BP 107 / 61; Pulse 93; Resp 16; Pulse Ox 94% on R/A; ic1 MDM: 10:02 Patient medically screened. cp 10:15 Differential diagnosis: viral Infection, bacterial infection, URI, bronchitis, cp pneumonia UTI. 13:05 Data reviewed: vital signs, nurses notes, lab test result(s), EKG, radiologic studies, cp plain films. 13:05 Test interpretation: by ED physician or midlevel provider: ECG, plain radiologic cp studies. Counseling: I had a detailed discussion with the patient and/or guardian regarding: the historical points, exam findings, and any diagnostic results supporting the discharge/admit diagnosis, lab results, radiology results, to return to the emergency department if symptoms worsen or persist or if there are any questions or concerns that arise at home. Response to treatment: the patient's symptoms have markedly improved after treatment, patient is well hydrated. ED course: VSS. Patient reports symptoms improved. Will discharge to home for continued monitoring. Labs reviewed and patient does not appear toxic. 09/21 09:58 Order name: Basic Metabolic Panel; Complete Time: 12:27 cp 09/21 12:27 Interpretation: Normal except: CL 108; GLUC 163; BUN 21; GFR 51. cp 09/21 09:58 Order name: CBC with Diff; Complete Time: 12:27 cp 09/21 12:27 Interpretation: Normal except: MCH 26.3; ESTHER% 79.8; LYM% 14.2. cp 09/21 09:58 Order name: LFT's; Complete Time: 12:27 cp 09/21 13:01 Interpretation: Normal except: AST 40; ALB 3.3; GLOB 4.5; A/G 0.7. cp 09/21 09:58 Order name: Magnesium; Complete Time: 12:27 cp 09/21 09:58 Order name: NT PRO-BNP; Complete Time: 12:27 cp 09/21 09:58 Order name: PT-INR; Complete Time: 12:27 cp 09/21 09:58 Order name: Troponin HS; Complete Time: 12:27 cp 09/21 09:58 Order name: Urine Microscopic Only; Complete Time: 12:27 09/21 13:01 Interpretation: Normal except: UWBC 20-50; UBACT 20-50. 09/21 09:58 Order name: Blood Culture Adult (2) 09/21 09:58 Order name: Lactate; Complete Time: 12:27 09/21 09:58 Order name: Procalcitonin; Complete Time: 12:27 09/21 10:06 Order name: COVID-19/FLU A+B (Document "Date of Onset" if Symptomatic); Complete Time: cp 12:27 09/21 10:18 Order name: Urine Dipstick-Ancillary; Complete Time: 12:27 EDNV 09/21 10:36 Order name: Urine Culture [facility] 09/21 09:58 Order name: XRAY Chest (1 view); Complete Time: 12:27 09/21 09:58 Order name: EKG; Complete Time: 09:59 09/21 09:58 Order name: Cardiac monitoring; Complete Time: 10:30 09/21 09:58 Order name: EKG - Nurse/Tech 09/21 09:58 Order name: IV Saline Lock 09/21 09:58 Order name: Labs collected and sent 09/21 09:58 Order name: O2 Per Protocol; Complete Time: 10:30 09/21 09:58 Order name: O2 Sat Monitoring; Complete Time: 10:30 09/21 09:58 Order name: Urine Dipstick-Ancillary (obtain specimen); Complete Time: 10:30 cp EC:45 Rate is 97 beats/min. Rhythm is regular. OH interval is normal. QRS interval is normal. cp QT interval is normal. T waves are Inverted in lead aVL. Interpreted by me. Reviewed by me. Administered Medications: 12:38 Drug: Rocephin 1 grams - ((cefTRIAXone) 1 grams, NS 0.9% 100 ml) Route: IVPB; Infused ic1 Over: 30 mins; Site: left antecubital; Disposition Summary: 09/21/21 13:06 Discharge Ordered Location: Home cp Problem: new cp Symptoms: have improved cp Condition: Stable cp Diagnosis - UTI/ Urinary tract infection, site not specified cp Followup: cp - With: Private Physician - When: 2 - 3 days - Reason: Recheck today's complaints Discharge Instructions: - Discharge Summary Sheet cp - Urinary Tract Infection, Adult cp Forms: - Medication Reconciliation Form cp - Thank You Letter cp - Antibiotic Education cp - Prescription Opioid Use cp Prescriptions: - Zofran 4 mg Oral Tablet - take 1 tablet by ORAL route every 12 hours As needed; 20 tablet; Refills: 0, cp Product Selection Permitted - Bactrim DS 800-160 mg Oral Tablet - take 1 tablet by ORAL route every 12 hours for 7 days; 14 tablet; Refills: 0, cp Product Selection Permitted Addendum: 09/23/2021 19:13 Co-signature as Attending Physician, Sigifredo Linda MD I agree with the assessment and k dr plan of care. Signatures: Dispatcher [employer] EDMS Sigifredo Linda MD MD [facility] Lee Wilcox PA PA cp Marianna Rahman RN RN ic1 Corrections: (The following items were deleted from the chart) 09/21 11:04 11:01 Constitutional: Positive for chills, Negative for body aches, poor PO intake, cp cp 11:04 11:01 Cardiovascular: Negative for chest pain, edema, palpitations, cp cp 11:04 11:01 Respiratory: Negative for cough, shortness of breath, wheezing, cp cp 11:04 11:01 Abdomen/GI: Negative for abdominal pain, vomiting, diarrhea, constipation, cp cp 11:04 11:01 ENT: Negative for drainage from ear(s), ear pain, sore throat, difficulty cp swallowing, difficulty handling secretions, cp 11:04 11:01 Back: Negative for pain at rest, pain with movement, radiated pain, cp cp 11:04 11:01 : Negative for urinary symptoms, cp cp 11:04 11:01 Neuro: Negative for altered mental status, headache, weakness, cp cp
--- NOTE | 2021-09-21 13:07 | ER ---
Nurse's Notes [facility] Name: Nancy Burgos Age: 66 yrs Sex: Female : 1955 Arrival Date: 09/21/2021 Time: 09:56 Bed 23 Private MD: Diagnosis: UTI/ Urinary tract infection, site not specified Presentation: 09/21 09:45 Chief complaint: Patient states: brought in by ems for fever. Denies cough, sob, or cp. ic1 Coronavirus screen: Vaccine status: Patient reports receiving the 2nd dose of the covid vaccine. Ebola Screen: No symptoms or risks identified at this time. Initial Sepsis Screen: Does the patient meet any 2 criteria? HR > 90 bpm. Does the patient have a suspected source of infection? No. Patient's initial sepsis screen is negative. Risk Assessment: Do you want to hurt yourself or someone else? Patient reports no desire to harm self or others. Onset of symptoms is unknown. 09:45 Method Of Arrival: EMS: [facility] ic1 09:45 Acuity: ZAINAB 3 ic1 Triage Assessment: 10:22 General: Appears in no apparent distress. uncomfortable, Behavior is calm, cooperative. ic1 Pain: Denies pain. EENT: No deficits noted. Neuro: Level of Consciousness is awake, alert, obeys commands, Oriented to person, place. Cardiovascular: Rhythm is regular. Respiratory: No deficits noted. GI: No deficits noted. : Reports burning with urination. Derm: No deficits noted. Musculoskeletal: No deficits noted. Historical: - Allergies: 12:39 No Known Allergies; ic1 - Home Meds: 10:22 omeprazole 20 mg Oral cpDR 1 cap once daily [Active]; letrozole 2.5 mg oral tab 1 tab ic1 once daily [Active]; levothyroxine 75 mcg cap 1 cap once daily [Active]; losartan 100 mg oral tab 1 tab once daily [Active]; donepezil 10 mg oral tab 1 tab twice a day [Active]; fenofibrate 160 mg oral tab 1 tab once daily [Active]; rosuvastatin 20 mg oral cpSP 1 cap once daily [Active]; memantine 10 mg oral tab 1 tab 2 times per day [Active]; - PMHx: 10:22 breast cancer; Diabetes - IDDM; Hypertension; ic1 - Immunization history:: Adult Immunizations up to date. - Social history:: Smoking status: Patient denies any tobacco usage or history of. Screenin:31 Abuse screen: Denies threats or abuse. Denies injuries from another. Nutritional ic1 screening: No deficits noted. Tuberculosis screening: No symptoms or risk factors identified. Fall Risk None identified. No fall in past 12 months (0 pts). Secondary diagnosis (15 points) IV access (20 points). Mental Status- Oriented to own ability (0 pts). Total Fried Fall Scale indicates Low Risk Score (25-44 pts). Side Rails Up X 2 Placed close to Nursing Station Family Present and informed to notify staff if they need to leave bedside As available Patient and Family Educated on Fall Prevention Program and strategies. Assessment: 10:31 Reassessment: See triage. ic1 Vital Signs: 09:45 BP 122 / 58; Pulse 101; Resp 16; Pulse Ox 96% on R/A; ic1 10:37 Temp 100.3(O); ic1 12:39 BP 110 / 58; Pulse 101; Resp 16; Pulse Ox 95% on R/A; ic1 13:10 BP 107 / 61; Pulse 93; Resp 16; Pulse Ox 94% on R/A; ic1 ED Course: 09:56 Patient arrived in ED. bd 09:56 Lee Wilcox PA is PHCP. cp 09:56 Sigifredo Linda MD is Attending Physician. cp 10:22 Triage completed. ic1 10:22 Arm band placed on left wrist. ic1 10:30 Blood Culture Adult (2) Sent. ic1 10:30 Urine Microscopic Only Sent. ic1 10:30 Lactate Sent. ic1 10:30 Procalcitonin Sent. ic1 10:30 Basic Metabolic Panel Sent. ic1 10:30 LFT's Sent. ic1 10:30 Magnesium Sent. ic1 10:30 NT PRO-BNP Sent. ic1 10:30 Troponin HS Sent. ic1 10:31 Patient has correct armband on for positive identification. Placed in gown. Bed in low ic1 position. Call light in reach. Side rails up X2. Adult w/ patient. 10:36 Marianna Rahman, RN is Primary Nurse. ic1 10:41 EKG done, by ED staff. kv1 10:46 court recording monitor on. Pulse ox on. NIBP on. Door closed. Visitors limited. ic1 10:46 No provider procedures requiring assistance completed. Inserted saline lock: 20 gauge ic1 in left antecubital area, using aseptic technique. Blood collected. 10:48 XRAY Chest (1 view) In Process Unspecified. EDMS 13:11 IV discontinued, intact, bleeding controlled, No redness/swelling at site. Pressure ic1 dressing applied. 09/22 00:30 Notified ED physician of a critical lab result(s). Positive Blood cultures aerobic. tw5 Administered Medications: 09/21 12:38 Drug: Rocephin 1 grams - ((cefTRIAXone) 1 grams, NS 0.9% 100 ml) Route: IVPB; Infused ic1 Over: 30 mins; Site: left antecubital; Outcome: 13:06 Discharge ordered by MD. cp 13:10 Discharged to home via wheelchair, with family. ic1 13:10 Condition: stable 13:10 Discharge instructions given to patient, Instructed on discharge instructions, follow up and referral plans. Demonstrated understanding of instructions, follow-up care, medications, Prescriptions given X 2. 13:31 Patient left the ED. ic1 Addendum: 09/26/2021 18:40 Addendum: Culture Results: Positive urine culture. No further action required. Bacteria i w sensitive to prescribed antibiotic. Signatures: Dispatcher [employer] EDMS Aria Schmidt Irene, RN RN Lee Jeffers PA PA cp Wood, Tiffany tw5 Keanu Cheatham Iesha RN RN ic1 Corrections: (The following items were deleted from the chart) 09/21 13:31 13:10 Discharge instructions given to patient, Instructed on discharge instructions, ic1 follow up and referral plans. Demonstrated understanding of instructions, follow-up care, medications, Prescriptions given X 1, ic1
[2021-09-21 13:43] VITALS: TEMP 100.3
[2021-09-21 13:46] VITALS: BP 107/61; O2SAT 94
== END 2021-09-21 13:31 | disposition home or self-care (01) ==
LOC: ER 09:50
DX: N39.0 Urinary tract infection, site not specified (principal); Z20.822 Contact with and (suspected) exposure to COVID-19; I10 Essential (primary) hypertension; E11.9 Type 2 diabetes mellitus without complications
CPT/HCPCS: 93005; 87040 ×2; 87088; 85025; 87086; 80048; 36415; 83735; 87205; 85610; 80076; 83605; 87077 ×2; 87186 ×2; 84484; 84145; 83880; 0240U; 71045; 96374; 99285; 81003; 81015

== ENCOUNTER 2024-02-10 08:20 | Emergency (ER) | payer MEDICARE ==
[2024-02-10 09:58] LABS: Specific Gravity 1.018 (1.005-1.030); Sqamous Epithelial <5 /HPF (None Seen); Transitional Epithelial <5 /HPF (None Seen); Urine Bacteria <20 /HPF (<20); Urine Bilirubin NEGATIVE (Negative); Urine Blood 3+ (Negative); Urine Clarity Extremely Turbid (Clear); Urine Color Light-Yellow (Yellow); Urine Culture Reflex Order REFLEXED; Urine Glucose 4+ (Over) (Negative); Urine Ketones NEGATIVE (Negative); Urine Micro Reflex YN NO BILL MICROSCOPIC; Urine Nitrite NEGATIVE (Negative); Urine Protein 1+ (Negative); Urine RBC >50 /HPF (None Seen); Urine Urobilinogen Normal (Normal); Urine WBC >50 /HPF (<5); Urine Yeast (Budding) Few /HPF (None Seen)
--- NOTE | 2024-02-10 10:47 | RAD REPORT ---
EXAM DESCRIPTION: CT - Stone Protocol - 02/10/2024 10:21 am CLINICAL HISTORY: Hematuria COMPARISON: 2021 TECHNIQUE: Computed axial tomography of the abdomen pelvis was obtained without oral or IV contrast. Lack of IV and oral contrast limits evaluation of solid organs, appendix, bowel, and vessels. Harris l reformatted images were obtained and reviewed. All CT scans are performed using dose optimization technique as appropriate and may include automated exposure control or mA/KV adjustment according to patient size. FINDINGS: A renal calculus is not seen. An ureteral calculus is not noted. A bladder calculus is not present. No hydronephrosis. Bladder wall appears thickened. A cirrhotic liver. Spleen, pancreas and adrenals appear grossly normal There is no evidence of diverticulitis. Cholecystectomy. No adnexal mass IMPRESSION: Negative for a genitourinary calculus Bladder wall appears thickened which may indicate inflammation
--- NOTE | 2024-02-10 10:50 | ER ---
Nurse's Notes [facility] Name: Nancy Burgos Age: 68 yrs Sex: Female : 1955 Arrival Date: 02/10/2024 Time: 08:20 Bed 19 Private MD: Diagnosis: UTI/ Urinary tract infection, site not specified Presentation: 02/09 08:40 Chief complaint: Dysuria x 3 days, blood in urine and suprapubic pain today. hb Coronavirus screen: At this time, the client does not indicate any symptoms associated with coronavirus-19. Ebola Screen: No symptoms or risks identified at this time. Initial Sepsis Screen: Does the patient meet any 2 criteria? No. Patient's initial sepsis screen is negative. Does the patient have a suspected source of infection? No. Patient's initial sepsis screen is negative. Risk Assessment: Do you want to hurt yourself or someone else? Patient reports no desire to harm self or others. Onset of symptoms was February 07, 2024. 08:40 Method Of Arrival: Ambulatory hb 08:40 Acuity: ZAINAB 4 hb Historical: - Allergies: 08:41 No Known Allergies; hb - Home Meds: 11:12 donepezil 10 mg Oral tab 1 tab twice a day [Active]; le1 - PMHx: 08:41 Diabetes - IDDM; breast cancer; Hypertension; hb - PSHx: 08:41 Left Mastectomy (en); hb - Immunization history:: Adult Immunizations up to date. - Infectious Disease History:: Denies. - Social history:: Smoking status: Patient denies any tobacco usage or history of. Screenin:44 [facility] ED Fall Risk Assessment (Adult) History of falling in the last 3 months, rs5 including since admission No falls in past 3 months (0 pts) Confusion or Disorientation No (0 pts) Intoxicated or Sedated No (0 pts) Impaired Gait No (0 pts) Mobility Assist Device Used No (0 pt) Altered Elimination No (0 pt) Score/Fall Risk Level 0 - 2 = Low Risk Oriented to surroundings, Maintained a safe environment. Abuse screen: Denies threats or abuse. Nutritional screening: No deficits noted. Tuberculosis screening: No symptoms or risk factors identified. Assessment: 08:45 General: Appears in no apparent distress. uncomfortable, Behavior is calm, cooperative. rs5 Pain: Complains of pain in suprapubic area Pain does not radiate. Pain currently is 3 out of 10 on a pain scale. Quality of pain is described as aching, Is continuous. Neuro: Level of Consciousness is awake, alert, obeys commands, Oriented to person, place, time, situation. Cardiovascular: Patient's skin is warm and dry. Respiratory: Airway is patent Respiratory effort is even, unlabored, Respiratory pattern is regular, symmetrical. GI: No signs and/or symptoms were reported involving the gastrointestinal system. : Reports burning with urination, dysuria, blood in urine. EENT: No signs and/or symptoms were reported regarding the EENT system. Derm: Skin is intact, Skin is pink, warm \T\ dry. 08:45 Musculoskeletal: Range of motion: intact in all extremities. rs5 09:40 Reassessment: Patient and/or family updated on plan of care and expected duration. Pain rs5 level reassessed. Patient is alert, oriented x 3, equal unlabored respirations, skin warm/dry/pink. 10:48 Reassessment: Patient appears in no apparent distress at this time. hb Vital Signs: 08:40 BP 123 / 58; Pulse 83; Resp 16; Temp 98; Pulse Ox 97% on R/A; Weight 71.67 kg; Height 5 hb ft. 4 in. ; Pain 5/10; 09:40 BP 120 / 63; Pulse 77; Resp 17; Pulse Ox 99% on R/A; rs5 11:17 BP 135 / 69 RA Supine (auto/reg); Pulse 67 RA; Resp 16 S; Temp 98.1(O); Pulse Ox 99% on le1 R/A; 08:40 Body Mass Index 27.12 (71.67 kg, 162.56 cm) hb 08:40 Pain Scale: Adult hb ED Course: 08:25 Patient arrived in ED. mg5 08:41 Triage completed. hb 08:42 Erik Peck MD is Attending Physician. ec2 08:42 Arm band placed on. hb 08:44 Patient has correct armband on for positive identification. Placed in gown. Bed in low rs5 position. Call light in reach. Side rails up X2. 08:44 No provider procedures requiring assistance completed. rs5 08:55 Lissette Ko FNP-C [facility]. 09:12 Urine collected: clean catch specimen, clear. 09:12 UAM Sent. 09:41 Cyril Garibay, RN is Primary Nurse. rs5 10:22 CT Stone Protocol In Process Unspecified. EDMS 10:51 Primary Nurse role handed off by Cyril Garbiay, RN le1 10:51 Brett Robert, RN is Primary Nurse. le1 11:12 Provided Education on: UTI medication. le1 11:18 Patient did not have IV access during this emergency room visit. le1 Administered Medications: 10:55 Drug: Amoxicillin-Clavulanate PO 875 mg PO once Route: PO; le1 10:57 Follow up: Response: No adverse reaction le1 Medication: 09:41 VIS not applicable for this client. rs5 Outcome: 10:49 Discharge ordered by . kb 11:10 Discharged to home ambulatory, le1 11:10 Condition: improved 11:10 Discharge instructions given to patient, family, Instructed on discharge instructions, follow up and referral plans. Demonstrated understanding of instructions, follow-up care, medications, Prescriptions given X 1, 11:18 Patient left the ED. le1 Addendum: 02/13/2024 09:13 Addendum: Culture Results: Positive urine culture. No further action required. Bacteria e b sensitive to prescribed antibiotic. Signatures: Dispatcher [employer] EDLissette Watters FNP-C COMMUNITY RESOURCE OFFICER-CkChristianne Allison RN RN hb Botello, Elizabeth eb Martinez, Zaina Cyril Garibay, KUSH RN rs5 Marce Adams 5 Erik Peck MD MD 2 Brett Robert RN RN le1 Corrections: (The following items were deleted from the chart) 02/09 09:26 09:12 Urinalysis+U.LAB.BRZ drawn and sent. KHADIJAHTX
--- NOTE | 2024-02-10 10:50 | EDPHYS ---
Physician Documentation [facility] Name: Nancy Burgos Age: 68 yrs Sex: Female : 1955 Arrival Date: 02/10/2024 Time: 08:20 Bed 19 Private MD: ED Physician Erik Peck HPI: 02/09 09:12 This 68 yrs old Female presents to ER via Ambulatory with complaints of kb Urinary Problem. 09:12 Pt is a 68 year old female who presents for dysuria, hematuria, urinary frequency and kb suprapubic pain that started 3 days ago. Denies fever, chills, flank pain, n/v/d.. Historical: - Allergies: 08:41 No Known Allergies; hb - Home Meds: 11:12 donepezil 10 mg Oral tab 1 tab twice a day [Active]; le1 - PMHx: 08:41 Diabetes - IDDM; breast cancer; Hypertension; hb - PSHx: 08:41 Left Mastectomy (en); hb - Immunization history:: Adult Immunizations up to date. - Infectious Disease History:: Denies. - Social history:: Smoking status: Patient denies any tobacco usage or history of. ROS: 09:12 Constitutional: As per HPI kb Exam: 09:12 Constitutional: This is a well developed, well nourished patient who is awake, alert, kb and in no acute distress. Head/Face: Normocephalic, atraumatic. ENT: Moist Mucous membranes Cardiovascular: Regular rate Respiratory: Respirations even and unlabored. No increased work of breathing. Talking in full sentences Back: No spinal tenderness. No costovertebral tenderness. Full range of motion. Skin: Warm, dry with normal turgor. Normal color. MS/ Extremity: Pulses equal, no cyanosis. Neurovascular intact. Full, normal range of motion. Neuro: Awake and alert, GCS 15, oriented to person, place, time, and situation. Moves all extremities. Normal gait. 09:12 Abdomen/GI: Inspection: abdomen appears normal, Bowel sounds: normal, Palpation: soft, in all quadrants, mild abdominal tenderness, in the suprapubic area, Vital Signs: 08:40 BP 123 / 58; Pulse 83; Resp 16; Temp 98; Pulse Ox 97% on R/A; Weight 71.67 kg; Height 5 hb ft. 4 in. ; Pain 5/10; 09:40 BP 120 / 63; Pulse 77; Resp 17; Pulse Ox 99% on R/A; rs5 11:17 BP 135 / 69 RA Supine (auto/reg); Pulse 67 RA; Resp 16 S; Temp 98.1(O); Pulse Ox 99% on le1 R/A; 08:40 Body Mass Index 27.12 (71.67 kg, 162.56 cm) hb 08:40 Pain Scale: Adult hb MDM: 08:42 Patient medically screened. ec2 10:48 Data reviewed: vital signs, nurses notes. kb 10:48 Differential diagnosis: uti, cystitis, kidney stone. Counseling: I had a detailed kb discussion with the patient and/or guardian regarding the historical points, exam findings, and any diagnostic results supporting the discharge/admit diagnosis, lab results, radiology results, the need for outpatient follow up, a family practitioner, to return to the emergency department if symptoms worsen or persist or if there are any questions or concerns that arise at home. 02/09 08:42 Order name: UAM; Complete Time: 10:00 ec2 02/09 10:04 Order name: Urine Culture EDMS 02/09 10:00 Order name: CT Stone Protocol; Complete Time: 10:48 kb Administered Medications: 10:55 Drug: Amoxicillin-Clavulanate PO 875 mg PO once Route: PO; le1 10:57 Follow up: Response: No adverse reaction le1 Disposition Summary: 02/10/24 10:49 Discharge Ordered Notes: Location: Home kb Condition: Stable kb Diagnosis - UTI/ Urinary tract infection, site not specified kb Followup: kb - With: Private Physician - When: 2 - 3 days - Reason: Recheck today's complaints, Continuance of care, Re-evaluation by your physician Followup: kb - With: Emergency Department - When: As needed - Reason: Worsening of condition Discharge Instructions: - Discharge Summary Sheet kb - Urinary Tract Infection, Adult, [id number] kb Forms: - Medication Reconciliation Form kb - Antibiotic Education kb - Prescription Opioid Use kb - Patient Portal Instructions kb - Leadership Thank You Letter kb Prescriptions: - Augmentin 875-125 mg Oral Tablet - take 1 tablet ORAL route every 12 hours for 10 days; 20 tablet; Refills: 0, kb Product Selection Permitted Addendum: 02/11/2024 11:49 I was immediately available for consultation during this patient's visit. I did not e c2 personally see the patient or discuss the patient with the JULIAN. . Signatures: Dispatcher [employer] Lissette Kaur, METAL BENCH PATTERNMAKER-C METAL BENCH PATTERNMAKER-CkChristianne Allison RN RN hb Erik Peck MD MD ec2 Brett Robert RN RN le1 Corrections: (The following items were deleted from the chart) 02/09 09:26 08:43 Urinalysis+U.LAB.BRZ ordered. ZUHAIR MOFFETT
[2024-02-10] MEDS ORDERED: AMOX/K CLAV 875 MG TAB ONE (10:54)
[2024-02-10 11:38] VITALS: BP 135/69; TEMP 98.1; O2SAT 99
== END 2024-02-10 11:18 | disposition home or self-care (01) ==
LOC: ER 08:20
DX: N39.0 Urinary tract infection, site not specified (principal)
CPT/HCPCS: 74176; 76377; 81001; 87077; 87086; 87088; 87186; 99284

== ENCOUNTER 2024-03-10 11:50 | Emergency (ER) | payer MEDICARE ==
--- NOTE | 2024-03-10 12:33 | RAD REPORT ---
EXAM DESCRIPTION: RAD - Foot Right 3 View - 03/10/2024 12:23 pm CLINICAL HISTORY: PAIN COMPARISON: <Comparisons> TECHNIQUE: Right foot, 3 views. FINDINGS: No fracture, dislocation or periosteal reaction. Enthesopathy at the Achillis tendon attachment. No air or foreign body in the soft tissues. IMPRESSION: No acute findings. Enthesopathy at the Achilles tendon attachment.
--- NOTE | 2024-03-10 12:38 | EDPHYS ---
Physician Documentation [facility] Name: Nancy Burgos Age: 68 yrs Sex: Female : 1955 Arrival Date: 03/10/2024 Time: 11:50 Bed IW1 Private MD: ED Physician Kenia Levi HPI: 03/10 12:34 This 68 yrs old Female presents to ER via Ambulatory with complaints of Leg gb1 Pain. 12:34 68-year-old female that fell yesterday and slipped in the bathroom and is now having gb1 pain at the top of her right foot. Her ankle is within normal limits and she is able to ambulate although she says she has a 5 out of 10 pain when she does so. When you press on the area at the top of her foot it is painful. She is able to bear weight and walk without assistance.. Historical: - Allergies: 12:10 No Known Allergies; hb - PMHx: 12:10 breast cancer; Diabetes - IDDM; Hypertension; hb - PSHx: 12:10 Left Mastectomy; hb - Immunization history:: Adult Immunizations up to date. - Infectious Disease History:: Denies. - Social history:: Smoking status: Patient denies any tobacco usage or history of. Exam: 12:34 Constitutional: This is a well developed, well nourished patient who is awake, alert, gb1 and in no acute distress. Head/Face: Normocephalic, atraumatic. Cardiovascular: Regular rate and rhythm with a normal S1 and S2. No gallops, murmurs, or rubs. Normal PMI, no JVD. No pulse deficits. Respiratory: Lungs have equal breath sounds bilaterally, clear to auscultation and percussion. No rales, rhonchi or wheezes noted. No increased work of breathing, no retractions or nasal flaring. MS/ Extremity: Pulses equal, no cyanosis. Neurovascular intact. Full, normal range of motion. Patient has an area at the mid dorsum of the foot that is mildly erythematous and tender to light palpation. There is no deformities present. Vital Signs: 12:09 BP 124 / 65; Pulse 80; Resp 16; Temp 97.5; Pulse Ox 96% on R/A; Weight 71.21 kg; Height hb 5 ft. 5 in. ; Pain 02/12; 12:09 Body Mass Index 26.13 (71.21 kg, 165.1 cm) hb 12:09 Pain Scale: Adult hb MDM: 12:07 Patient medically screened. gb1 12:34 Differential diagnosis: dislocation, closed fracture, contusion, abrasion, tendonitis. gb1 Data reviewed: Right foot x-ray is within normal limits. 03/10 12:11 Order name: Foot Right 3 View XRAY; Complete Time: 12:34 gb1 Administered Medications: No medications were administered Disposition Summary: 03/10/24 12:37 Discharge Ordered Notes: Location: Home gb1 Condition: Stable gb1 Diagnosis - Contusion of right foot gb1 Followup: gb1 - With: Private Physician - When: Upon discharge from the Emergency Department - Reason: Re-evaluation by your physician Discharge Instructions: - Discharge Summary Sheet gb1 - Foot Pain gb1 Forms: - Medication Reconciliation Form gb1 - Antibiotic Education gb1 - Prescription Opioid Use gb1 - Patient Portal Instructions gb1 - Leadership Thank You Letter gb1 Prescriptions: - Ibuprofen 800 mg Oral Tablet - take 1 tablet ORAL route every 12 hours As needed take with food; 20 tablet; gb1 Refills: 0, Product Selection Permitted Signatures: Dispatcher [employer] EDChristianne Mayberry RN RN hb Blocker, Gina, MD MD gb1
--- NOTE | 2024-03-10 12:38 | ER ---
Nurse's Notes [facility] Name: Nancy Burgos Age: 68 yrs Sex: Female : 1955 Arrival Date: 03/10/2024 Time: 11:50 Bed IW1 Private MD: Diagnosis: Contusion of right foot Presentation: 03/10 12:09 Chief complaint: Right foot pain after mechanical fall from standing yesterday. hb Coronavirus screen: At this time, the client does not indicate any symptoms associated with coronavirus-19. Ebola Screen: No symptoms or risks identified at this time. Initial Sepsis Screen: Does the patient meet any 2 criteria? No. Patient's initial sepsis screen is negative. Does the patient have a suspected source of infection? No. Patient's initial sepsis screen is negative. Risk Assessment: Do you want to hurt yourself or someone else? Patient reports no desire to harm self or others. Onset of symptoms was March 09, 2024. 12:09 Method Of Arrival: Ambulatory hb 12:09 Acuity: ZAINAB 4 hb Triage Assessment: 12:43 General: Appears in no apparent distress. Behavior is calm, cooperative, appropriate ll1 for age. Historical: - Allergies: 12:10 No Known Allergies; hb - PMHx: 12:10 breast cancer; Diabetes - IDDM; Hypertension; hb - PSHx: 12:10 Left Mastectomy; hb - Immunization history:: Adult Immunizations up to date. - Infectious Disease History:: Denies. - Social history:: Smoking status: Patient denies any tobacco usage or history of. Screenin:43 [facility] ED Fall Risk Assessment (Adult) History of falling in the last 3 months, ll1 including since admission Yes- single mechanical fall (1 pt) Confusion or Disorientation No (0 pts) Intoxicated or Sedated No (0 pts) Impaired Gait Yes (1 pt) Mobility Assist Device Used Yes (1 pt) Altered Elimination No (0 pt) Score/Fall Risk Level 3 or more points = High Risk Maintained a safe environment, Hourly rounding (assess needs \T\ fall precautionary measures) done, Used ambulatory aids as needed (educated on \T\ assisted with). Abuse screen: Denies threats or abuse. Nutritional screening: No deficits noted. Tuberculosis screening: No symptoms or risk factors identified. Assessment: 12:43 General: Appears in no apparent distress. Behavior is calm, cooperative, appropriate ll1 for age. Pain: Complains of pain in right foot. Musculoskeletal: Circulation, motion, and sensation intact. Capillary refill < 3 seconds, Reports pain in right foot. Vital Signs: 12:09 BP 124 / 65; Pulse 80; Resp 16; Temp 97.5; Pulse Ox 96% on R/A; Weight 71.21 kg; Height hb 5 ft. 5 in. ; Pain 7/10; 12:09 Body Mass Index 26.13 (71.21 kg, 165.1 cm) hb 12:09 Pain Scale: Adult hb ED Course: 11:52 Patient arrived in ED. mr 11:53 Kenia Levi MD is Attending Physician. gb1 12:10 Triage completed. hb 12:10 Arm band placed on. hb 12:24 Foot Right 3 View XRAY In Process Unspecified. EDMS 12:43 Patient has correct armband on for positive identification. Provided Education on: ll1 return for worsening symptoms. 12:43 No provider procedures requiring assistance completed. Patient did not have IV access ll1 during this emergency room visit. Administered Medications: No medications were administered Medication: 13:14 VIS not applicable for this client. ll1 Outcome: 12:37 Discharge ordered by . gb1 12:43 Patient left the ED. hb 12:43 Discharged to home ambulatory, ll1 12:43 Condition: stable 12:43 Discharge instructions given to patient, Instructed on discharge instructions, follow up and referral plans. medication usage, Demonstrated understanding of instructions, follow-up care, medications, Prescriptions given X 1, Signatures: Dispatcher [employer] EDAK Noemi Raymundo, Reg Reg mr Christianne Willingham RN RN hb Lewis, Lynsay, RN RN ll1 Kenia Levi MD MD gb1
[2024-03-10 14:50] VITALS: BP 124/65; TEMP 97.5; O2SAT 96
== END 2024-03-10 12:43 | disposition home or self-care (01) ==
LOC: ER 11:50
DX: S90.31XA Contusion of right foot, initial encounter (principal)
CPT/HCPCS: 99283

== ENCOUNTER 2024-09-02 11:38 | Emergency (ER) | payer MEDICARE, OTHER ==
[2024-09-02 12:59] LABS: Absolute Basophils 0.1 K/uL (0-0.5); Absolute Eosinophils 0.1 K/uL (0-0.5); Absolute Lymphocytes (CBC) 2.4 K/uL (0.7-4.9); Absolute Monocytes 0.4 K/uL (0.1-1.3); Absolute Neutrophil 3.2 K/uL (1.8-8.0); Eosinophils % 1.3 % (0-4.4); Hematocrit 40.7 % (36.0-45.0); Hemoglobin 13.6 g/dL (12.0-15.0); Lymphocytes % 38.9 % (15.3-44.8); MCH 27.2 pg (27.0-35.0); MCHC 33.3 g/dL (32.0-36.0); MCV 81.6 fL (80-100); MPV 9.5 fL (7.6-11.3); Monocytes % 6.9 % (3.3-12.3); Neutrophils % 51.9 % (41.7-73.7); Platelets 206 thou/uL (152-406); Red Cell Distribution Width 14.1 % (12.1-15.2)
[2024-09-02 13:25] LABS: Anion Gap 9.1 mEq/L (5.0-15.0); Potassium 4.1 mEq/L (3.5-5.1)
[2024-09-02] MEDS ORDERED: INSULIN REGULAR (HUMAN) 100 UNIT/ML ONE (13:27)
[2024-09-02] MEDS ORDERED: NA CHLORIDE 0.9% 1,000 ML ONE (13:28)
--- NOTE | 2024-09-02 15:28 | ER ---
Nurse's Notes [facility] Name: Nancy Burgos Age: 69 yrs Sex: Female : 1955 Arrival Date: 09/02/2024 Time: 11:38 Bed 20 Private MD: Diagnosis: Diabetes mellitus due to underlying condition with hyperglycemia Presentation: 09/02 11:54 Chief complaint: Patient states: she was sent by her dr for having high blood sugar. ap3 patient denies any nausea or vomiting. Coronavirus screen: At this time, the client does not indicate any symptoms associated with coronavirus-19. Ebola Screen: No symptoms or risks identified at this time. Initial Sepsis Screen: Does the patient meet any 2 criteria? No. Patient's initial sepsis screen is negative. Does the patient have a suspected source of infection? No. Patient's initial sepsis screen is negative. Risk Assessment: Do you want to hurt yourself or someone else? Patient reports no desire to harm self or others. Onset of symptoms is unknown. 11:54 Method Of Arrival: Ambulatory ap3 11:54 Acuity: ZAINAB 3 ap3 Triage Assessment: 11:55 General: Appears in no apparent distress. Behavior is calm, cooperative, appropriate ap3 for age. Pain: Denies pain. Neuro: Level of Consciousness is awake, alert, obeys commands, Oriented to person, place, time, situation, Appropriate for age. Cardiovascular: Patient's skin is warm and dry. Respiratory: Airway is patent Respiratory effort is even, unlabored, Respiratory pattern is regular, symmetrical. Historical: - Allergies: 11:55 No Known Allergies; ap3 - PMHx: 11:55 breast cancer; Diabetes - IDDM; Hypertension; ap3 - PSHx: 11:55 Left Mastectomy; ap3 - Immunization history:: Client reports having NOT received the Covid vaccine. - Infectious Disease History:: Denies. - Social history:: Smoking status: Patient denies any tobacco usage or history of. Screenin:56 [facility] ED Fall Risk Assessment (Adult) History of falling in the last 3 months, ap3 including since admission No falls in past 3 months (0 pts) Confusion or Disorientation No (0 pts) Intoxicated or Sedated No (0 pts) Impaired Gait No (0 pts) Mobility Assist Device Used No (0 pt) Altered Elimination No (0 pt) Score/Fall Risk Level 0 - 2 = Low Risk Oriented to surroundings, Maintained a safe environment, Educated pt \T\ family on fall prevention, incl call for assistance when getting out of bed, Assessed \T\ reinforced patient's understanding of fall precautions, Hourly rounding (assess needs \T\ fall precautionary measures) done, Used ambulatory aids as needed (educated on \T\ assisted with), Used gait belt as appropriate. Abuse screen: Denies threats or abuse. Nutritional screening: No deficits noted. Tuberculosis screening: No symptoms or risk factors identified. Assessment: 12:35 General: Appears comfortable, Behavior is calm, cooperative. Pain: Denies pain. Neuro: ha1 Level of Consciousness is awake, alert, obeys commands, Oriented to person, place, time, situation. Cardiovascular: Capillary refill < 3 seconds Patient's skin is warm and dry. Respiratory: Airway is patent Respiratory effort is even, unlabored, Respiratory pattern is regular, symmetrical. GI: Abdomen is round non-distended, Reports elevated glucose level. : No signs and/or symptoms were reported regarding the genitourinary system. Derm: Skin is pink, warm \T\ dry. Musculoskeletal: Circulation, motion, and sensation intact. Range of motion: intact in all extremities. 13:23 Reassessment: Patient and/or family updated on plan of care and expected duration. Pain ha1 level reassessed. Patient is alert, oriented x 3, equal unlabored respirations, skin warm/dry/pink. 14:11 Reassessment: Patient and/or family updated on plan of care and expected duration. Pain ha1 level reassessed. Patient is alert, oriented x 3, equal unlabored respirations, skin warm/dry/pink. 15:00 Reassessment: Patient and/or family updated on plan of care and expected duration. Pain ha1 level reassessed. Patient is alert, oriented x 3, equal unlabored respirations, skin warm/dry/pink. 15:59 Reassessment: Patient and/or family updated on plan of care and expected duration. Pain ha1 level reassessed. Patient is alert, oriented x 3, equal unlabored respirations, skin warm/dry/pink. Vital Signs: 11:54 BP 133 / 67; Pulse 66; Resp 17; Temp 97.9; Pulse Ox 97% ; Weight 69.4 kg; Height 5 ft. ap3 4 in. ; 13:00 BP 104 / 62; Pulse 62; Resp 17 S; Pulse Ox 98% on R/A; ha1 14:00 BP 117 / 64; Pulse 63; Resp 17 S; Pulse Ox 97% on R/A; ha1 15:00 BP 128 / 72; Pulse 66; Resp 18 S; Pulse Ox 97% on R/A; ha1 15:59 BP 117 / 71; Pulse 67; Resp 17 S; Pulse Ox 97% on R/A; ha1 11:54 Body Mass Index 26.26 (69.40 kg, 162.56 cm) ap3 ED Course: 11:41 Patient arrived in ED. ra3 11:44 Garcia Purvis DO is Attending Physician. ms3 11:55 Triage completed. ap3 11:56 Arm band placed on right wrist. ap3 12:30 Patient has correct armband on for positive identification. Placed in gown. Bed in low ha1 position. Call light in reach. Side rails up X 1. Adult w/ patient. 12:53 BMP Sent. ss 12:53 CBC with Diff Sent. ss 12:53 Inserted saline lock: 22 gauge in left antecubital area, using aseptic technique. Blood ss collected. Flushed with 10 mL NS. 13:12 Maria Alejandra Marrero, KUSH is Primary Nurse. ha1 13:29 Notified ED physician of a critical lab result(s). Glucose 434. ph 15:27 Tomy Musa MD is Referral Physician. ms3 15:59 No provider procedures requiring assistance completed. IV discontinued, intact, ha1 bleeding controlled, No redness/swelling at site. Pressure dressing applied. 16:00 Provided Education on: follow ups . ha1 Administered Medications: 13:34 Drug: NS 0.9% IV 1000 ml IV at 1000 ml once; to be given as a bolus over 60 minutes ha1 Route: IV; Rate: 1000 ml; Site: left antecubital; 14:40 Follow up: Response: No adverse reaction; IV Status: Completed infusion; IV Intake: ha1 1000ml 13:34 Drug: Insulin Regular Human Sub-Q 5 units Sub-Q once {Co-Signature: ph (Brissa De Leon Pavel RN).} Route: Sub-Q; Site: abdomen; 14:20 Follow up: Response: No adverse reaction; Blood sugar is lowered ha1 Medication: 13:13 VIS not applicable for this client. ha1 Point of Care Testing: Blood Glucose: 11:56 Blood Glucose: 448 mg/dL; ap3 Ranges: Intake: 14:40 IV: 1000ml; Total: 1000ml. ha1 Outcome: 15:27 Discharge ordered by . ms3 15:59 Discharged to home ambulatory, with family, ha1 15:59 Condition: stable 15:59 Discharge instructions given to patient, family, Instructed on discharge instructions, follow up and referral plans. Demonstrated understanding of instructions, follow-up care, 16:01 Patient left the ED. ha1 Signatures: Reshma Darnell RN RN Brissa De Leon RN RN ph Monae Ferrari RN RN 3 Garcia Purvis DO DO ms3 Maria Alejandra Marrero RN RN 1 Fabienne Tafoya 3 Brissa De Leon RN
--- NOTE | 2024-09-02 15:28 | EDPHYS ---
Physician Documentation [facility] Name: Nancy Burgos Age: 69 yrs Sex: Female : 1955 Arrival Date: 09/02/2024 Time: 11:38 Bed 20 Private MD: ED Physician Garcia Purvis HPI: 09/02 12:13 This 69 yrs old Female presents to ER via Ambulatory with complaints of High ms3 Blood Sugar. 12:13 Nancy Burgos is a 69-year-old female presenting to the emergency department due to high ms3 blood sugar levels. She reports a recent lab result from two days ago indicating blood sugar levels over 500 mg/dL. She does not report any pain or frequent urination. Her past medical history includes cirrhosis, diabetes, high cholesterol, and a history of breast cancer.. Historical: - Allergies: 11:55 No Known Allergies; ap3 - PMHx: 11:55 breast cancer; Diabetes - IDDM; Hypertension; ap3 - PSHx: 11:55 Left Mastectomy; ap3 - Immunization history:: Client reports having NOT received the Covid vaccine. - Infectious Disease History:: Denies. - Social history:: Smoking status: Patient denies any tobacco usage or history of. ROS: 12:13 Constitutional: Negative for fever, and chills. Cardiovascular: Negative for chest ms3 pain, and palpitations. Respiratory: Negative for shortness of breath, cough, wheezing, and pleuritic chest pain, Abdomen/GI: Negative for abdominal pain, nausea, vomiting, diarrhea, and constipation, MS/Extremity: Negative for injury and deformity, Skin: Negative for injury, rash, and discoloration, Exam: 12:13 Constitutional: This is a well developed, well nourished patient who is awake, alert, ms3 and in no acute distress. Cardiovascular: Regular rate and rhythm with a normal S1 and S2. No gallops, murmurs, or rubs. Normal PMI, no JVD. No pulse deficits. Respiratory: Lungs have equal breath sounds bilaterally, clear to auscultation and percussion. No rales, rhonchi or wheezes noted. No increased work of breathing, no retractions or nasal flaring. Abdomen/GI: Soft, non-tender, with normal bowel sounds. No distension or tympany. No guarding or rebound. No evidence of tenderness throughout. Skin: Warm, dry with normal turgor. Normal color with no rashes, no lesions, and no evidence of cellulitis. Vital Signs: 11:54 BP 133 / 67; Pulse 66; Resp 17; Temp 97.9; Pulse Ox 97% ; Weight 69.4 kg; Height 5 ft. ap3 4 in. ; 13:00 BP 104 / 62; Pulse 62; Resp 17 S; Pulse Ox 98% on R/A; ha1 14:00 BP 117 / 64; Pulse 63; Resp 17 S; Pulse Ox 97% on R/A; ha1 15:00 BP 128 / 72; Pulse 66; Resp 18 S; Pulse Ox 97% on R/A; ha1 15:59 BP 117 / 71; Pulse 67; Resp 17 S; Pulse Ox 97% on R/A; ha1 11:54 Body Mass Index 26.26 (69.40 kg, 162.56 cm) ap3 MDM: 12:02 Medical Screening Exam initiated ms3 12:13 Differential diagnosis: DKA, hyperglycemia. ms3 15:28 Data reviewed: vital signs, nurses notes, lab test result(s), and as a result, I will ms3 discharge patient. I considered the following discharge prescriptions or medication management in the emergency department Medications were administered in the Emergency Department. See MAR. Counseling: I had a detailed discussion with the patient and/or guardian regarding the historical points, exam findings, and any diagnostic results supporting the discharge/admit diagnosis, lab results, the need for outpatient follow up, to return to the emergency department if symptoms worsen or persist or if there are any questions or concerns that arise at home. ED course: Discussed labs with patient. Patient's blood glucose level improved after fluids and subcutaneous insulin. Patient to follow-up with Dr. Musa in 2 to 3 days. Patient understands and agrees with plan. All questions were answered. Return precautions discussed include worsening symptoms, or any other concerns. On reevaluation patient is alert and oriented x 4, no apparent distress, nontoxic-appearing, speaking full sentences.. 09/02 11:44 Order name: CBC with Diff; Complete Time: 13:18 ms3 09/02 11:44 Order name: BMP; Complete Time: 13:30 ms3 09/02 12:06 Order name: Glucose, Ancillary Testing; Complete Time: 12:23 EDMS 09/02 15:11 Order name: Glucose, Ancillary Testing; Complete Time: 15:18 EDMS 09/02 11:44 Order name: Glucose Level; Complete Time: 11:57 ms3 Administered Medications: 13:34 Drug: NS 0.9% IV 1000 ml IV at 1000 ml once; to be given as a bolus over 60 minutes ha1 Route: IV; Rate: 1000 ml; Site: left antecubital; 14:40 Follow up: Response: No adverse reaction; IV Status: Completed infusion; IV Intake: ha1 1000ml 13:34 Drug: Insulin Regular Human Sub-Q 5 units Sub-Q once {Co-Signature: ph (Brissa De Leon RN).} Route: Sub-Q; Site: abdomen; 14:20 Follow up: Response: No adverse reaction; Blood sugar is lowered ha1 Point of Care Testing: Blood Glucose: 11:56 Blood Glucose: 448 mg/dL; ap3 Ranges: Critical Glucose Levels:Adult <50 mg/dl or >400 mg/dl <40 mg/dl or >180 mg/dl Disposition Summary: 09/02/24 15:27 Discharge Ordered Notes: Location: Home ms3 Condition: Stable ms3 Diagnosis - Diabetes mellitus due to underlying condition with hyperglycemia ms3 Followup: ms3 - With: Tomy Musa MD - When: 2 - 3 days - Reason: Recheck today's complaints Discharge Instructions: - Discharge Summary Sheet ms3 - Hyperglycemia ms3 Forms: - Medication Reconciliation Form ms3 - Antibiotic Education ms3 - Prescription Opioid Use ms3 - Patient Portal Instructions ms3 - Leadership Thank You Letter ms3 Signatures: Dispatcher [employer] Monae Espinal RN RN [email or web address] Garcia Purvis DO DO ms3 Maria Alejandra Marrero RN RN ha1 Hall, Patricia RN ph Corrections: (The following items were deleted from the chart) 11:45 11:45 CBC+H.LAB.BRZ ordered. EDMS EDMS 11:45 11:45 BASIC METABOLIC PANEL+C.LAB.BRZ ordered. EDMS EDMS
[2024-09-02 19:45] VITALS: TEMP 97.9
[2024-09-02 19:48] VITALS: O2SAT 97
[2024-09-02 19:50] VITALS: BP 117/71
== END 2024-09-02 16:01 | disposition home or self-care (01) ==
LOC: ER 11:38
DX: E11.65 Type 2 diabetes mellitus with hyperglycemia (principal)
CPT/HCPCS: 85025; 80048; 36415; 82947 ×2; 96360; 96372; 99284; J7030

== ENCOUNTER 2024-10-08 14:16 | Emergency (ER) | payer OTHER ==
--- NOTE | 2024-10-08 15:04 | RAD REPORT ---
EXAMINATION: Head Brain Wo Cont CLINICAL INDICATION: Female, 69 years old.Dizziness;Headache TECHNIQUE: Axial CT images from the skull base to the vertex without intravenous contrast. Coronal an d sagittal reformatted images were created from the data set. One or more of the following dose reduction techniques were used: Automated exposure control, adjustment of the mA and/or kV according to patient size, and/or iterative reconstruction. Unless otherwise specified, incidental findings do not require dedicated imaging follow-up. [id number]. COMPARISON: 06/26/2020 FINDINGS: INTRACRANIAL: No acute intracranial hemorrhage. No hydrocephalus. No mass effect or midline shift. Mi ld chronic small vessel ischemic changes. VASCULATURE: No visualized abnormalities in the arteries or dural venous sinuses. SCALP/SKULL: No calvarial fracture identified. No acute soft tissue abnormality. SINUSES: The visualized paranasal sinuses are mostly clear. No significant mastoid fluid. IMPRESSION: No acute intracranial abnormality. No significant change from prior.
[2024-10-08] MEDS ORDERED: ACETAMINOPHEN 325 MG TABLET ONE (15:22)
--- NOTE | 2024-10-08 15:22 | RAD REPORT ---
EXAMINATION: US CAROTID DUPLEX CLINICAL INDICATION: , 69 years old. DIZZINESS. TECHNIQUE: Real-time grayscale, color flow and spectral Doppler sonographic images were obtained of t extracranial carotid system using a linear transducer. [id number]. COMPARISON: No prior exam. FINDINGS: RIGHT: Common carotid artery: 71 cm/s Internal carotid artery: 88 cm/s External carotid artery: 90 cm/s Right ICA/CCA ratio: 1.2 Plaque None Vertebral artery Antegrade LEFT: Common carotid artery: 96 cm/s Internal carotid artery: 77 cm/s External carotid artery: 106 cm/s lEFT ICA/CCA ratio: 0.8 Plaque None Vertebral artery Antegrade IMPRESSION: No hemodynamically significant stenosis (greater than 50%) within the extracranial internal carotid a [facility].
--- NOTE | 2024-10-08 16:04 | RAD REPORT ---
EXAMINATION: MRI BRAIN WITHOUT CONTRAST CLINICAL INDICATION: Female, 69 years old. DIZZINESS TECHNIQUE: Multiplanar multisequence MR images of the brain were obtained without intravenous contras t. Unless otherwise specified, incidental findings do not require dedicated imaging follow-up. [id number]. COMPARISON: Same-day head CT FINDINGS: INTRACRANIAL: No acute infarct identified. No significant mass effect or midline shift.No hydrocepha jesus. Mild chronic small vessel ischemic changes.Mild cerebral atrophy. VASCULATURE: Normal signal voids in the larger intracranial arteries and dural venous sinuses. SINUSES: The paranasal sinuses are clear.No mastoid effusions. BONE: The marrow signal pattern is within normal limits. IMPRESSION: No acute intracranial abnormality. No acute infarct. Chronic small vessel ischemic changes.
--- NOTE | 2024-10-08 16:28 | RAD REPORT ---
EXAM: Chest Single View HISTORY: 69 years Female PALPITATIONS COMPARISON: None. FINDINGS: LUNGS/PLEURA: The lungs are clear. No pleural effusions or pneumothorax. No pulmonary edema. CARDIAC/MEDIASTINUM: The cardiac silhouette is within normal limits. UPPER ABDOMEN: No significant abnormality. BONES: No acute abnormality. ACDF in the cervical spine. LINES/TUBES/OTHER: Surgical clips in the left axilla. IMPRESSION: No evidence of acute cardiopulmonary disease. No significant change from prior.
[2024-10-08 16:44] LABS: Absolute Lymphocytes (CBC) 0.5 K/uL (0.7-4.9); Absolute Monocytes 0.2 K/uL (0.1-1.3); Absolute Neutrophil 5.4 K/uL (1.8-8.0); Basophils % 0.4 % (0-1.3); Eosinophils % 0.5 % (0-4.4); Hematocrit 39.4 % (36.0-45.0); Hemoglobin 13.2 g/dL (12.0-15.0); Lymphocytes % 8.5 % (15.3-44.8); MCHC 33.4 g/dL (32.0-36.0); Monocytes % 3.3 % (3.3-12.3); Neutrophils % 87.3 % (41.7-73.7); Platelets 203 thou/uL (152-406); RBC Red Blood Cell Count 4.87 M/uL (3.86-4.86); Red Cell Distribution Width 13.6 % (12.1-15.2)
[2024-10-08 16:47] LABS: Specific Gravity 1.015 (1.005-1.030); Sqamous Epithelial None Seen /HPF (None Seen); Urine Bacteria None Seen /HPF (<20); Urine Bilirubin NEGATIVE (Negative); Urine Blood Negative (Negative); Urine Clarity Clear (Clear); Urine Color Light-Yellow (Yellow); Urine Culture Reflex Order NOT NEEDED; Urine Glucose 4+ (Negative); Urine Ketones NEGATIVE (Negative); Urine Microscopic Reflex YN ORDER UMIC; Urine Nitrite NEGATIVE (Negative); Urine Protein TRACE (Negative); Urine RBC None Seen /HPF (None Seen); Urine Urobilinogen Normal (Normal); Urine WBC <5 /HPF (<5); Urine Yeast (Budding) Trace /HPF (None Seen); Urine pH 7.5 (5.0-7.0)
[2024-10-08 16:49] LABS: PT Prothrombin Time 13.9 SECONDS (10.0-13.0); Protime INR 1.23
[2024-10-08 17:01] LABS: Influenza A Ag Negative; Influenza B Ag Negative; SARS-CoV-2 Antigen Rapid Res Negative (Negative)
[2024-10-08 17:03] LABS: Albumin 3.5 g/dL (3.4-5.0); Albumin/Globulin Ratio 0.8 (1.1-1.8); Anion Gap 10.9 mEq/L (5.0-15.0); Bilirubin Direct 0.2 mg/dL (0-0.2); Bilirubin Indirect, Calculated 0.3 mg/dL (0.2-0.8); Bilirubin Total 0.5 mg/dL (0.2-1.0); Globulin 4.4 g/dL (2.3-3.5); Magnesium 1.6 mg/dL (1.6-2.4); Potassium 3.9 mEq/L (3.5-5.1); Protein, Total 7.9 g/dL (6.4-8.2); Troponin High Sensitivity 6.9 pg/mL (<58.9)
[2024-10-08] MEDS ORDERED: DIPHENHYDRAMINE 50 MG/ML VIAL ONE (17:20)
[2024-10-08] MEDS ORDERED: NA CHLORIDE 0.9% 1,000 ML ONE ×2 (17:20→18:50)
[2024-10-08] MEDS ORDERED: METOCLOPRAMIDE 10 MG/2mL INJ ONE (17:20)
[2024-10-08] MEDS ORDERED: KETOROLAC 30 MG/ML INJ ONE (17:20)
--- NOTE | 2024-10-08 18:36 | RAD REPORT ---
EXAMINATION: CT ABDOMEN AND PELVIS WITH CONTRAST CLINICAL INDICATION: Female, 69 years old.ABD PAIN TECHNIQUE: CT abdomen and pelvis was performed, after the administration of IV contrast, as per [facility] protocol. Axial, sagittal and coronal reconstructions were obtained. One or more of the following dose reduction techniques were used: Automated exposure control, adjustment of the mA and/o r kV according to patient size, and/or iterative reconstruction. Unless otherwise specified, incidental findings do not require dedicated imaging follow-up. [id number]. COMPARISON: 02/10/2024 FINDINGS: LOWER CHEST: No acute process identified.No significant pericardial effusion. Mild circumferential th ickening of the distal esophagus which could reflect esophagitis. UPPER GI: No significant abnormality. LIVER: Hepatic steatosis, but otherwise unremarkable. GALLBLADDER/BILE DUCTS: Cholecystectomy. Moderate extrahepatic biliary ductal dilatation. This could be secondary to the post-cholecystectomy state. Recommend correlation with LFT's. If abnormal, consider MRCP for further evaluation. ? PANCREAS: Atrophy but no acute findings. SPLEEN: Unremarkable. ADRENALS: No adrenal masses. KIDNEYS AND URETERS: No hydronephrosis.No suspicious renal mass.No renal calculi. ABDOMINAL AORTA AND OTHER VESSELS: Mild atherosclerotic changes. PERITONEUM: No abnormal free fluid. No free air. LYMPH NODES: No pathologic lymphadenopathy. ABDOMINAL WALL: Unremarkable SMALL BOWEL/COLON: Small bowel has normal course and caliber. No colonic wall thickening or pericolon ic inflammatory changes.Nonvisualized appendix but no secondary signs of acute appendicitis. Mild diverticulosis without diverticulitis. Mild formed stool burden. URINARY BLADDER: Circumferential bladder wall thickening with bladder gas. REPRODUCTIVE ORGANS: No pathologic process. MUSCULOSKELETAL: Multilevel degenerative changes in the spine. No acute fracture. ADDITIONAL FINDINGS: None. IMPRESSION: No acute findings within the abdomen or pelvis. Possible cystitis. Incidental findings as noted above.
[2024-10-08] MEDS ORDERED: CEFTRIAXONE 1000 MG/VIAL ONE (18:50)
[2024-10-08] MEDS ORDERED: MAGNESIUM SULFATE 1 gm IVPB 1 GM/100 ML BAG IV ONE (18:50)
[2024-10-08] MEDS ORDERED: AMOX/K CLAV 875 MG TAB ONE (18:50)
[2024-10-08] MEDS ORDERED: ASPIRIN 81 MG CHEWABLE TABLET ONE (18:50)
--- NOTE | 2024-10-08 18:52 | ER ---
Nurse's Notes [facility] Name: Nancy Burgos Age: 69 yrs Sex: Female : 1955 Arrival Date: 10/08/2024 Time: 14:16 Bed 11 Private MD: Diagnosis: Dizziness and giddiness;Fever, unspecified;Abdominal pain, Generalized;Headache;Type 1 diabetes mellitus with hyperglycemia;Acute cystitis without hematuria;UTI/ Urinary tract infection, site not specified Presentation: 10/08 15:25 Chief complaint: Patient states: Had a bone density shot yesterday and is now having cm10 abdominal pain, headache, dizziness and nausea. Coronavirus screen: Client denies travel out of the [place] in the last 14 days. Ebola Screen: Patient denies travel to an Ebola-affected area in the 21 days before illness onset. Initial Sepsis Screen: Does the patient meet any 2 criteria? HR > 90 bpm. Does the patient have a suspected source of infection? No. Patient's initial sepsis screen is negative. Risk Assessment: Do you want to hurt yourself or someone else? Patient reports no desire to harm self or others. Onset of symptoms was October 08, 2024. 15:25 Method Of Arrival: Wheelchair cm10 15:25 Acuity: ZAINAB 3 cm10 Triage Assessment: 15:26 General: Appears in no apparent distress. uncomfortable, Behavior is calm, cooperative. cm10 Neuro: No deficits noted. Level of Consciousness is awake, alert, obeys commands, Oriented to person, place, time, situation, Appropriate for age. Respiratory: No deficits noted. Airway is patent Respiratory effort is even, unlabored, Respiratory pattern is regular, symmetrical. Historical: - Allergies: 15:26 No Known Allergies; cm10 - PMHx: 15:26 breast cancer; Diabetes - IDDM; Hypertension; cm10 - PSHx: 15:26 Left Mastectomy; cm10 - Immunization history:: Adult Immunizations up to date. - Infectious Disease History:: Denies. - Social history:: Smoking status: Patient denies any tobacco usage or history of. Screenin:48 [facility] ED Fall Risk Assessment (Adult) History of falling in the last 3 months, jb4 including since admission No falls in past 3 months (0 pts) Confusion or Disorientation No (0 pts) Intoxicated or Sedated No (0 pts) Impaired Gait No (0 pts) Mobility Assist Device Used No (0 pt) Altered Elimination No (0 pt) Score/Fall Risk Level 0 - 2 = Low Risk Oriented to surroundings, Maintained a safe environment. Abuse screen: Denies threats or abuse. Nutritional screening: No deficits noted. Tuberculosis screening: No symptoms or risk factors identified. Assessment: 15:07 General: Pt in radiology at this time.. cm10 17:30 Reassessment: Patient appears in no apparent distress at this time. Patient and/or jb4 family updated on plan of care and expected duration. Pain level reassessed. Patient is alert, oriented x 3, equal unlabored respirations, skin warm/dry/pink. 19:00 Reassessment: Patient appears in no apparent distress at this time. Patient and/or jb4 family updated on plan of care and expected duration. Pain level reassessed. Patient is alert, oriented x 3, equal unlabored respirations, skin warm/dry/pink. d/c pending completion of IV fluids. Vital Signs: 15:25 BP 130 / 94; Pulse 118; Resp 18; Temp 100.2(O); Pulse Ox 96% on R/A; Weight 71.21 kg; cm10 Height 5 ft. 4 in. ; Pain 3/10; 17:30 BP 116 / 68; Pulse 97; Resp 16; Pulse Ox 93% on R/A; jb4 19:56 BP 109 / 65; Pulse 78; Resp 16; Temp 98.3(O); Pulse Ox 96% ; jb4 15:25 Body Mass Index 26.95 (71.21 kg, 162.56 cm) cm10 15:25 Pain Scale: Adult cm10 Alvin Coma Score: 17:43 Eye Response: spontaneous(4). Motor Response: obeys commands(6). Verbal Response: hallie oriented(5). Total: 15. 17:45 Eye Response: spontaneous(4). Motor Response: obeys commands(6). Verbal Response: hallie oriented(5). Total: 15. NIH Stroke Scale Scores: 17:43 NIHSS Score: 0 hallie ED Course: 14:19 Patient arrived in ED. al6 14:37 Lee Hernández MD is Attending Physician. hallie 14:56 CT Head Brain wo Cont In Process Unspecified. EDMS 15:17 US Carotid Artery Bilateral In Process Unspecified. EDMS 15:26 Triage completed. cm10 15:26 Arm band placed on Patient placed in waiting room. cm10 15:56 Brain Wo Cont In Process Unspecified. EDMS 16:15 Chest Single View In Process Unspecified. EDMS 16:36 COVID-19 Ag + Flu A+B Ag Sent. bc6 16:36 Group A Streptococcus Rapid Sent. bc6 16:36 Urinalysis w/ reflexes Sent. bc6 16:36 Troponin HS Sent. bc6 16:36 PT-INR Sent. bc6 16:36 NT PRO-BNP Sent. bc6 16:36 Magnesium Sent. bc6 16:36 LFT's Sent. bc6 16:36 CBC with Diff Sent. bc6 16:36 Basic Metabolic Panel Sent. bc6 16:36 Initial lab(s) drawn, by mo, sent to lab. COVID swab sent to lab. Strep swab sent to 6 lab. Inserted saline lock: 20 gauge in right antecubital area, using aseptic technique. Blood collected. Flushed with 10 mL NS. 17:51 Ollie Thomas, RN is Primary Nurse. jb4 18:27 CT Abd/Pelvis - IV Contrast Only In Process Unspecified. EDMS 18:53 Graham Dominique MD is Referral Physician. hallie 19:48 Patient has correct armband on for positive identification. Bed in low position. Call jb4 light in reach. Side rails up X 1. Provided Education on: discharge instructions.. 19:48 No provider procedures requiring assistance completed. IV discontinued, intact, jb4 bleeding controlled, No redness/swelling at site. Pressure dressing applied. Administered Medications: 15:29 Drug: Acetaminophen PO 650 mg PO once Route: PO; cm10 16:00 Follow up: Response: No adverse reaction; Marked relief of symptoms jb4 17:28 Drug: Ketorolac IVP 15 mg IVP once Route: IVP; Site: right antecubital; jb4 18:00 Follow up: Response: No adverse reaction; Marked relief of symptoms jb4 17:28 Drug: metoCLOPramide IVP 10 mg IVP once; over 1 to 2 minutes Route: IVP; Site: right jb4 antecubital; 18:00 Follow up: Response: No adverse reaction; Marked relief of symptoms jb4 17:28 Drug: diphenhydrAMINE IVP 25 mg IVP once Route: IVP; Site: right antecubital; jb4 18:00 Follow up: Response: No adverse reaction; Marked relief of symptoms jb4 17:28 Drug: NS 0.9% IV 1000 ml IV at 1000 ml once; to be given as a bolus over 60 minutes jb4 Route: IV; Rate: 1000 ml; Site: right antecubital; 18:30 Follow up: Response: No adverse reaction; IV Status: Completed infusion; IV Intake: jb4 1000ml 18:59 Drug: Rocephin IV 1 grams IV at per protocol once; Given slow IV push per pharmacy jb4 instructions Route: IV; Rate: per protocol; Site: right antecubital; 19:03 Follow up: Response: No adverse reaction; Marked relief of symptoms; IV Status: jb4 Completed infusion; IV Intake: 10ml 18:59 Drug: Amoxicillin-Clavulanate PO 875 mg PO once Route: PO; jb4 19:24 Follow up: Response: No adverse reaction jb4 18:59 Drug: Aspirin PO Chewable Tablet 81 mg PO once Route: PO; jb4 19:24 Follow up: Response: No adverse reaction jb4 18:59 Drug: Magnesium Sulfate IVPB 1 grams IVPB once over 1 hrs Route: IVPB; Infused Over: 1 jb4 hrs; Site: right hand; 18:59 Drug: NS 0.9% IV 1000 ml IV at 1000 ml once; to be given as a bolus over 60 minutes jb4 Route: IV; Rate: 1000 ml; Site: right antecubital; 19:40 Drug: Ciprofloxacin PO 500 mg PO once Route: PO; jb4 Intake: 18:30 IV: 1000ml; Total: 1000ml. jb4 19:03 IV: 10ml; Total: 1010ml. jb4 Outcome: 18:51 Discharge ordered by . hallie 19:48 Discharged to home ambulatory, with family, jb4 19:48 Condition: stable 19:48 Discharge instructions given to patient, Instructed on discharge instructions, follow up and referral plans. medication usage, Demonstrated understanding of instructions, follow-up care, medications, Prescriptions given X 4, 19:56 Patient left the ED. jb4 NIH Stroke Scale - NIH Stroke Score Date: 10/08/2024 Time: 17:43 Total Score = 0 10. Dysarthria (speech clarity - read or repeat words) - 0(Normal) 11. Extinction and Inattention (visual/tactile/auditory/spatial/personal) - 0(No abnormality) 1a. Level of Consciousness (LOC) - 0(Alert) 1b. Level of Consciousness (LOC) (Month \T\ Age) - 0(Both) 1c. LOC Commands (Open \T\ Closes Eyes/Light Bulb Tester) - 0(Both) 2. Best Gaze (Lateral Gaze Paresis) - 0(Normal) 3. Visual Field Loss - 0(No visual loss) 4. Facial Palsy - 0(Normal) 5a. Left Arm: Motor (10-second hold) - 0(No drift) 5b. Right Arm: Motor (10-second hold) - 0(No drift) 6a. Left Leg: Motor (5-second hold - always test supine) - 0(No drift) 6b. Right Leg: Motor (5-second hold - always test supine) - 0(No drift) 7. Limb Ataxia (finger/nose \T\ heel/griffin - test with eyes open) - 0(Absent) 8. Sensory Loss (pinprick arms/legs/face) - 0(Normal) 9. Best Language: Aphasia (description/naming/reading) - 0(No aphasia) Initials: hallie Signatures: Dispatcher [employer] EDMS Lee Hernández MD MD cha Bryson, James RN RN jb4 Liliya Ferreira bc6 Lindy Breaux RN RN cm10 [email or web address] Corrections: (The following items were deleted from the chart) 15:45 15:33 In radiology for Chest Single View+RAD.RAD.BRZ. EDMS EDMS
--- NOTE | 2024-10-08 18:52 | EDPHYS ---
Physician Documentation [facility] Name: Nancy Burgos Age: 69 yrs Sex: Female : 1955 Arrival Date: 10/08/2024 Time: 14:16 Bed 11 Private MD: ED Physician Lee Hernández HPI: 10/08 17:41 This 69 yrs old Female presents to ER via Wheelchair with complaints of hallie Dizziness, Headache. 17:41 The patient presents with dizziness, feeling faint, generalized weakness, hallie lightheadedness. Onset: The symptoms/episode began/occurred 1 day(s) ago. Context: occurred at an unknown location, occurred while the patient was usual. Modifying factors: The symptoms are alleviated by nothing, the symptoms are aggravated by standing up. Associated signs and symptoms: Pertinent positives: abdominal pain, nausea. Severity of symptoms: At their worst the symptoms were moderate in the emergency department the symptoms are unchanged. Patient's baseline: Neuro: alert and fully oriented. The patient has experienced similar episodes in the past, several times. Historical: - Allergies: 15:26 No Known Allergies; cm10 - PMHx: 15:26 breast cancer; Diabetes - IDDM; Hypertension; cm10 - PSHx: 15:26 Left Mastectomy; cm10 - Immunization history:: Adult Immunizations up to date. - Infectious Disease History:: Denies. - Social history:: Smoking status: Patient denies any tobacco usage or history of. ROS: 17:43 Eyes: Negative for injury, pain, redness, and discharge, ENT: Negative for injury, hallie pain, and discharge, Neck: Negative for injury, pain, and swelling, Cardiovascular: Negative for chest pain, palpitations, and edema, Respiratory: Negative for shortness of breath, cough, wheezing, and pleuritic chest pain, Back: Negative for injury and pain, : Negative for injury, bleeding, discharge, and swelling, MS/Extremity: Negative for injury and deformity, Skin: Negative for injury, rash, and discoloration, Psych: Negative for depression, anxiety, suicide ideation, homicidal ideation, and hallucinations, Allergy/Immunology: Negative for hives, rash, and allergies, Endocrine: Negative for neck swelling, polydipsia, polyuria, polyphagia, and marked weight changes, Hematologic/Lymphatic: Negative for swollen nodes, abnormal bleeding, and unusual bruising, 17:43 Constitutional: Positive for body aches, chills, fatigue, fever, malaise, 17:43 Respiratory: Positive for cough, with no reported sputum, 17:43 Abdomen/GI: Positive for abdominal pain, nausea, abdominal cramps, Exam: 17:43 Head/Face: Normocephalic, atraumatic. Eyes: Pupils equal round and reactive to light, hallie extra-ocular motions intact. Lids and lashes normal. Conjunctiva and sclera are non-icteric and not injected. Cornea within normal limits. Periorbital areas with no swelling, redness, or edema. ENT: Nares patent. No nasal discharge, no septal abnormalities noted. Tympanic membranes are normal and external auditory canals are clear. Oropharynx with no redness, swelling, or masses, exudates, or evidence of obstruction, uvula midline. Mucous membranes moist. Neck: Trachea midline, no thyromegaly or masses palpated, and no cervical lymphadenopathy. Supple, full range of motion without nuchal rigidity, or vertebral point tenderness. No Meningismus. Chest/axilla: Normal chest wall appearance and motion. Nontender with no deformity. No lesions are appreciated. Cardiovascular: Regular rate and rhythm with a normal S1 and S2. No gallops, murmurs, or rubs. Normal PMI, no JVD. No pulse deficits. Respiratory: Lungs have equal breath sounds bilaterally, clear to auscultation and percussion. No rales, rhonchi or wheezes noted. No increased work of breathing, no retractions or nasal flaring. Back: No spinal tenderness. No costovertebral tenderness. Full range of motion. Skin: Warm, dry with normal turgor. Normal color with no rashes, no lesions, and no evidence of cellulitis. MS/ Extremity: Pulses equal, no cyanosis. Neurovascular intact. Full, normal range of motion., bilateral aka Neuro: Awake and alert, GCS 15, oriented to person, place, time, and situation. Cranial nerves II-XII grossly intact. Motor strength 5/5 in all extremities. Sensory grossly intact. Cerebellar exam normal. Normal gait. Psych: Awake, alert, with orientation to person, place and time. Behavior, mood, and affect are within normal limits. 17:43 ECG was reviewed by the Attending Physician. 17:43 Musculoskeletal/extremity: Circulation is intact in all extremities. Sensation intact. Compartment Syndrome exam of affected extremity: is normal. DVT Exam: No signs of deep vein thrombosis. no pain, no swelling, no tenderness, negative Homans' sign noted on exam, no appreciated bluish discoloration, no erythema, no increased warmth, 17:43 Skin: Appearance: Color: normal in color, Temperature: normal temperature, Moisture: normal moisture, abscess, not appreciated, cellulitis, is not appreciated, Vital Signs: 15:25 BP 130 / 94; Pulse 118; Resp 18; Temp 100.2(O); Pulse Ox 96% on R/A; Weight 71.21 kg; cm10 Height 5 ft. 4 in. ; Pain 3/10; 17:30 BP 116 / 68; Pulse 97; Resp 16; Pulse Ox 93% on R/A; jb4 19:56 BP 109 / 65; Pulse 78; Resp 16; Temp 98.3(O); Pulse Ox 96% ; jb4 15:25 Body Mass Index 26.95 (71.21 kg, 162.56 cm) cm10 15:25 Pain Scale: Adult cm10 NIH Stroke Scale Scores: 17:43 NIHSS Score: 0 hallie Ayse Coma Score: 17:43 Eye Response: spontaneous(4). Motor Response: obeys commands(6). Verbal Response: hallie oriented(5). Total: 15. 17:45 Eye Response: spontaneous(4). Motor Response: obeys commands(6). Verbal Response: hallie oriented(5). Total: 15. MDM: 14:37 Medical Screening Exam initiated hallie 17:45 Differential diagnosis: cluster headache, cerebral vascular accident, viral Infection, hallie bacterial infection, URI, bronchitis, pneumonia UTI, gastroenteritis, meningitis, hyponatremia, sinusitis, subarachnoid bleed, tension headache, cholecystitis, diverticulitis, gastritis, gastroesophageal reflux disease, non-specific abd pain, pancreatitis, Pyelonephritis, Ureterolithiasis, urinary tract infection. Differential Diagnosis altered mental status, sepsis, flu. Differential diagnosis: cardiac arrhythmia, CVA, generalized weakness, hypovolemia, idiopathic dizziness, near-syncope, sepsis, vertigo. Data reviewed: vital signs, nurses notes, lab test result(s), EKG, radiologic studies, CT scan, plain films, ultrasound. Consideration of Admission/Observation Escalation of care including admission/observation considered. I considered the following discharge prescriptions or medication management in the emergency department Medications were administered in the Emergency Department. See MAR. Independent interpretation of the following test(s) in the Emergency Department EKG: See my EKG interpretation above. Test considered but Not performed: MRI: no mrcp. Historians other than the Patient: Spouse/Significant Other: spouse well informed. Care significantly affected by the following chronic conditions: Diabetes, Hypertension, Cancer. Counseling: I had a detailed discussion with the patient and/or guardian regarding the historical points, exam findings, and any diagnostic results supporting the discharge/admit diagnosis, lab results, radiology results, the need for outpatient follow up, for definitive care, a family practitioner. 10/08 14:40 Order name: Basic Metabolic Panel; Complete Time: 17:34 [facility] 10/08 14:40 Order name: CBC with Diff; Complete Time: 17:34 [facility] 10/08 14:40 Order name: LFT's; Complete Time: 17:34 [facility] 10/08 14:40 Order name: Magnesium; Complete Time: 17:34 [facility] 10/08 14:40 Order name: NT PRO-BNP; Complete Time: 17:34 [facility] 10/08 14:40 Order name: PT-INR; Complete Time: 17:34 [facility] 10/08 14:40 Order name: Troponin HS; Complete Time: 17:34 [facility] 10/08 14:40 Order name: Urinalysis w/ reflexes; Complete Time: 17:34 [facility] 10/08 15:30 Order name: Group A Streptococcus Rapid; Complete Time: 17:34 cm10 10/08 15:30 Order name: COVID-19 Ag + Flu A+B Ag; Complete Time: 17:34 cm10 10/08 17:04 Order name: Throat Culture [facility] 10/08 17:41 Order name: Blood Culture Adult (2) [facility] 10/08 18:51 Order name: Urine Culture [facility] 10/08 14:40 Order name: CT Head Brain wo Cont; Complete Time: 17:34 [facility] 10/08 14:40 Order name: US Carotid Artery Bilateral; Complete Time: 17:34 [facility] 10/08 15:47 Order name: Chest Single View; Complete Time: 17:34 [facility] 10/08 15:56 Order name: Brain Wo Cont; Complete Time: 17:34 [facility] 10/08 17:40 Order name: CT Abd/Pelvis - IV Contrast Only; Complete Time: 18:50 [facility] 10/08 14:40 Order name: EKG; Complete Time: 14:40 [facility] 10/08 14:40 Order name: Cardiac monitoring; Complete Time: 19:30 [facility] 10/08 14:40 Order name: EKG - Nurse/Tech; Complete Time: 16:43 [facility] 10/08 14:40 Order name: IV Saline Lock; Complete Time: 16:36 [facility] 10/08 14:40 Order name: Labs collected and sent; Complete Time: 16:36 [facility] 10/08 14:40 Order name: O2 Per Protocol; Complete Time: 17:13 [facility] 10/08 14:40 Order name: O2 Sat Monitoring; Complete Time: 17:13 [facility] 10/08 17:38 Order name: PO challenge; Complete Time: 19:24 [facility] EC:43 Rate is 101 beats/min. Rhythm is regular. QRS [place] is Normal. [place] interval is normal. [facility] QRS interval is normal. QT interval is normal. No Q waves. T waves are Normal. No ST changes noted. Clinical impression: Sinus tachycardia. Interpreted by me. Reviewed by me. Administered Medications: 15:29 Drug: Acetaminophen PO 650 mg PO once Route: PO; cm10 16:00 Follow up: Response: No adverse reaction; Marked relief of symptoms jb4 17:28 Drug: Ketorolac IVP 15 mg IVP once Route: IVP; Site: right antecubital; jb4 18:00 Follow up: Response: No adverse reaction; Marked relief of symptoms jb4 17:28 Drug: metoCLOPramide IVP 10 mg IVP once; over 1 to 2 minutes Route: IVP; Site: right jb4 antecubital; 18:00 Follow up: Response: No adverse reaction; Marked relief of symptoms jb4 17:28 Drug: diphenhydrAMINE IVP 25 mg IVP once Route: IVP; Site: right antecubital; jb4 18:00 Follow up: Response: No adverse reaction; Marked relief of symptoms jb4 17:28 Drug: NS 0.9% IV 1000 ml IV at 1000 ml once; to be given as a bolus over 60 minutes jb4 Route: IV; Rate: 1000 ml; Site: right antecubital; 18:30 Follow up: Response: No adverse reaction; IV Status: Completed infusion; IV Intake: jb4 1000ml 18:59 Drug: Rocephin IV 1 grams IV at per protocol once; Given slow IV push per pharmacy jb4 instructions Route: IV; Rate: per protocol; Site: right antecubital; 19:03 Follow up: Response: No adverse reaction; Marked relief of symptoms; IV Status: jb4 Completed infusion; IV Intake: 10ml 18:59 Drug: Amoxicillin-Clavulanate PO 875 mg PO once Route: PO; jb4 19:24 Follow up: Response: No adverse reaction jb4 18:59 Drug: Aspirin PO Chewable Tablet 81 mg PO once Route: PO; jb4 19:24 Follow up: Response: No adverse reaction jb4 18:59 Drug: Magnesium Sulfate IVPB 1 grams IVPB once over 1 hrs Route: IVPB; Infused Over: 1 jb4 hrs; Site: right hand; 18:59 Drug: NS 0.9% IV 1000 ml IV at 1000 ml once; to be given as a bolus over 60 minutes jb4 Route: IV; Rate: 1000 ml; Site: right antecubital; 19:40 Drug: Ciprofloxacin PO 500 mg PO once Route: PO; jb4 Disposition Summary: 10/08/24 18:51 Discharge Ordered Notes: Location: Home hallie Problem: new hallie Symptoms: have improved hallie Condition: Stable hallie Diagnosis - Dizziness and giddiness hallie - Fever, unspecified hallie - Abdominal pain, Generalized hallie - Headache hallie - Type 1 diabetes mellitus with hyperglycemia hallie - Acute cystitis without hematuria hallie - UTI/ Urinary tract infection, site not specified hallie Followup: hallie - With: Private Physician - When: 2 - 3 days - Reason: Recheck today's complaints, Continuance of care, Re-evaluation by your physician Followup: hallie - With: Graham Dominique MD - When: 2 - 3 days - Reason: Recheck today's complaints, Re-evaluation by your physician Discharge Instructions: - Discharge Summary Sheet hallie - Abdominal Pain, Adult hallie - Dizziness hallie - Fever, Adult hallie - General Headache Without Cause hallie - Hyperglycemia hallie - Urinary Tract Infection, Adult hallie - Urinary Tract Infection, Adult, [id number] hallie - Abdominal Pain, Adult, [id number] hallie - Aspirin and Your Heart hallie - General Headache Without Cause, [id number] hallie Forms: - Medication Reconciliation Form hallie - Antibiotic Education hallie - Prescription Opioid Use hallie - Patient Portal Instructions hallie - Leadership Thank You Letter hallie Prescriptions: - ondansetron 4 mg Oral Tablet,disintegrating - take 1 tablet ORAL route 3 times per day for 5 days prn nausea; 20 tablet; [facility] Refills: 0, Product Selection Permitted - Augmentin 875-125 mg Oral tablet - take 1 tablet ORAL route every 12 hours for 7 days; 14 tablet; Refills: 0, [facility] Product Selection Permitted - Cipro 250 mg Oral tablet - take 1 tablet ORAL route every 12 hours; 14 tablet; Refills: 0, Product [facility] Selection Permitted - Tylenol 325 mg Oral tablet - take 2 tablets ORAL route every 6 hours prn temp greater than 100.4; 40 tablet; [facility] Refills: 0, Product Selection Permitted NIH Stroke Scale - NIH Stroke Score Date: 10/08/2024 Time: 17:43 Total Score = 0 10. Dysarthria (speech clarity - read or repeat words) - 0(Normal) 11. Extinction and Inattention (visual/tactile/auditory/spatial/personal) - 0(No abnormality) 1a. Level of Consciousness (LOC) - 0(Alert) 1b. Level of Consciousness (LOC) (Month \T\ Age) - 0(Both) 1c. LOC Commands (Open \T\ Closes Eyes/Severity Of Illness Coordinator) - 0(Both) 2. Best Gaze (Lateral Gaze Paresis) - 0(Normal) 3. Visual Field Loss - 0(No visual loss) 4. Facial Palsy - 0(Normal) 5a. Left Arm: Motor (10-second hold) - 0(No drift) 5b. Right Arm: Motor (10-second hold) - 0(No drift) 6a. Left Leg: Motor (5-second hold - always test supine) - 0(No drift) 6b. Right Leg: Motor (5-second hold - always test supine) - 0(No drift) 7. Limb Ataxia (finger/nose \T\ heel/griffin - test with eyes open) - 0(Absent) 8. Sensory Loss (pinprick arms/legs/face) - 0(Normal) 9. Best Language: Aphasia (description/naming/reading) - 0(No aphasia) Initials: [facility] Signatures: Dispatcher [employer] Lee Ovalle MD MD cha Bryson, James RN RN jb4 Lindy Breaux RN RN cm10 Corrections: (The following items were deleted from the chart) 15:45 14:40 Chest Single View+RAD.RAD.BRZ ordered. EDMS EDMS 15:56 14:40 MR STROKE PROTOCOL+MRI.RAD.BRZ ordered. EDMS EDMS 17:41 17:41 BLOOD CULTURE*+BA.LAB.BRZ ordered. EDMS EDMS 18:04 17:41 Abdomen Limited+US.RAD.BRZ ordered. EDMS EDMS
[2024-10-08] MEDS ORDERED: CIPROFLOXACIN HCL 500 MG TAB ONE (19:36)
[2024-10-08 20:21] VITALS: BP 109/65; TEMP 98.3; O2SAT 96
== END 2024-10-08 19:56 | disposition home or self-care (01) ==
LOC: ER 14:16
DX: E10.65 Type 1 diabetes mellitus with hyperglycemia (principal); N30.01 Acute cystitis with hematuria; R50.9 Fever, unspecified; R10.84 Generalized abdominal pain; R51.9 Headache, unspecified; I10 Essential (primary) hypertension; Z11.52 Encounter for screening for COVID-19; Z85.3 Personal history of malignant neoplasm of breast; Z90.12 Acquired absence of left breast and nipple
CPT/HCPCS: 87040 ×2; 87070; 87088; 85025; 81001; 87086; 80048; 36415; 83735; 85610; 80076; 84484; 83880; 70450; 74177; 71045; 93880; 70551; 87428; Q9967; J3475; J2765; J1200; J7030 ×2; J0696; 93005

== ENCOUNTER 2025-04-01 08:36 | Emergency (ER) | payer OTHER ==
[2025-04-01 09:22] LABS: Sqamous Epithelial <5 /HPF (None Seen); Urine Culture Reflex Order NOT NEEDED; Urine Microscopic Reflex YN ORDER UMIC
[2025-04-01 09:33] LABS: Absolute Lymphocytes (CBC) 2.5 K/uL (0.7-4.9); Hematocrit 37.6 % (36.0-45.0); Hemoglobin 12.4 g/dL (12.0-15.0); MCH 27.0 pg (27.0-35.0); MCHC 33.1 g/dL (32.0-36.0); MCV 81.6 fL (80-100); MPV 9.3 fL (7.6-11.3); Nucleated RBC Absolute Count 0.0 (0-0); Nucleated Red Blood Cells % 0.0 % (0-0); RBC Red Blood Cell Count 4.60 M/uL (3.86-4.86); White Blood Count 6.30 thou/uL (4.3-10.9)
[2025-04-01 09:35] LABS: Anion Gap 6.6 mEq/L (5.0-15.0); BUN Blood Urea Nitrogen 19.0 mg/dL (7-18); Glucose Level 101.0 mg/dL (74-106); Potassium 3.6 mEq/L (3.5-5.1)
[2025-04-01] MEDS ORDERED: CEFTRIAXONE 1000 MG/VIAL ONE (10:21)
[2025-04-01] MEDS ORDERED: ONDANSETRON 4 MG/2 ML VIAL ONE (10:21)
[2025-04-01] MEDS ORDERED: KETOROLAC 30 MG/ML INJ ONE (10:21)
[2025-04-01] MEDS ORDERED: NA CHLORIDE 0.9% 50 ML ONE (10:22)
--- NOTE | 2025-04-01 10:26 | EDPHYS ---
Physician Documentation [facility] Name: Nancy Burgos Age: 70 yrs Sex: Female : 1955 Arrival Date: 04/01/2025 Time: 08:36 Bed 8 Private MD: ED Physician Lee Hernández HPI: 04/01 09:35 This 70 yrs old Female presents to ER via Ambulatory with complaints of Back dr5 Pain. 09:35 The patient presents with pain that is acute, with no known mechanism of injury. Onset: dr5 The symptoms/episode began/occurred acutely, 1 week(s) ago. The problem was sustained. Patient is a 70-year-old female with history of breast cancer, diabetes, hyperlipidemia coming in with dysuria and urinary frequency for the past week. Patient also reports lower back cramping. Patient denies fever, chest pain, abdominal pain, nausea, vomiting, diarrhea, fever. Patient states that she was recently seen and prescribed metronidazole for vaginal infection. Patient reports she completed metronidazole completely.. Historical: - Allergies: 08:49 No Known Allergies; jl7 - PMHx: 08:49 breast cancer; Diabetes - IDDM; Hypercholesterolemia; jl7 - PSHx: 08:49 Left Mastectomy; Appendectomy; Cholecystectomy; jl7 - Immunization history:: Adult Immunizations unknown. - Infectious Disease History:: Denies. - Social history:: Smoking status: Patient denies any tobacco usage or history of. ROS: 09:35 Constitutional: as per hpi dr5 Exam: 09:35 Constitutional: This is a well developed, well nourished patient who is awake, alert, dr5 and in no acute distress. Head/Face: Normocephalic, atraumatic. Eyes: Pupils equal round and reactive to light, extra-ocular motions intact. Lids and lashes normal. Conjunctiva and sclera are non-icteric and not injected. Cornea within normal limits. Periorbital areas with no swelling, redness, or edema. Chest/axilla: Normal chest wall appearance and motion. Nontender with no deformity. No lesions are appreciated. Cardiovascular: Regular rate and rhythm with a normal S1 and S2. Normal PMI, no JVD. No pulse deficits. Respiratory: Lungs have equal breath sounds bilaterally, clear to auscultation. No rales, rhonchi or wheezes noted. No increased work of breathing, no retractions or nasal flaring. Back: No spinal tenderness. No costovertebral tenderness. Full range of motion. Skin: Warm, dry with normal turgor. Normal color with no rashes, no lesions, and no evidence of cellulitis. MS/ Extremity: Pulses equal, no cyanosis. Neurovascular intact. Full, normal range of motion. Neuro: Awake and alert, GCS 15, oriented to person, place, time, and situation. Cranial nerves II-XII grossly intact. Motor strength 5/5 in all extremities. Sensory grossly intact. Cerebellar exam normal. Normal gait. 09:35 Abdomen/GI: Inspection: abdomen appears normal, Bowel sounds: normal, active, Palpation: abdomen is soft and non-tender, in all quadrants, 09:35 Back: pain, is absent, ROM is normal, normal spinal alignment noted, CVA tenderness, is absent, Vital Signs: 08:48 BP 138 / 75; Pulse 87; Resp 15; Temp 98.8; Pulse Ox 98% ; Weight 68.04 kg; Height 5 ft. jl7 3 in. ; Pain 6/10; 10:29 BP 129 / 71; Pulse 75; Resp 18; Pulse Ox 100% on R/A; ph 08:48 Body Mass Index 26.57 (68.04 kg, 160.02 cm) jl7 08:48 Pain Scale: Adult jl7 MDM: 08:39 Medical Screening Exam initiated dr5 10:25 Differential diagnosis: arthritis, sprain, UTI. Data reviewed: vital signs, nurses dr5 notes, lab test result(s), CBC, white blood cell count, hemoglobin, hematocrit, platelets, electrolytes, sodium, potassium, chloride, serum bicarbonate, BUN, creatinine, serum glucose, urinalysis, bacteruria. Consideration of Admission/Observation Escalation of care including admission/observation considered. Discussion considered patient found to have elevated white blood cell count or acute kidney injury. I considered the following discharge prescriptions or medication management in the emergency department I discussed and recommended Over The Counter medications, Medications were administered in the Emergency Department. See MAR. Historians other than the Patient: Spouse/Significant Other: Spouse at bedside. Care significantly affected by the following chronic conditions: Diabetes, Cancer, Hyperlipidemia. Care significantly affected by the following Social Determinants of Health: Poor access to healthcare and/or lack of insurance, Poor access to transportation, Problems related to employment. Counseling: I had a detailed discussion with the patient and/or guardian regarding the historical points, exam findings, and any diagnostic results supporting the discharge/admit diagnosis, the presence of at least one elevated blood pressure reading (>120/80) during this emergency department visit, lab results, the need for outpatient follow up, for definitive care, a family practitioner, to return to the emergency department if symptoms worsen or persist or if there are any questions or concerns that arise at home. Medication response: Toradol relieved patient's pain. The symptoms have resolved, Zofran relieved the patient's nausea. Response to treatment: the patient's symptoms have resolved after treatment, the patient's condition has returned to base line, the patient is now symptom free. Special discussion: I have referred the patient to see his PCP for further evaluation of high blood pressure. I discussed with the patient/guardian in detail that at this point there is no indication for admission to the hospital. It is understood, however, that if the symptoms persist or worsen the patient needs to return immediately for re-evaluation. Based on the history and exam findings, there is no indication for further emergent testing or inpatient evaluation. I discussed with the patient/guardian the need to see the primary care provider for further evaluation of the symptoms. ED course: Rocephin given in ER. Lab results reviewed with no acute abnormality. Patient has mild urinary tract infection. Rocephin given in ER. Will have patient follow-up with primary care doctor and starting antibiotics. All questions answered. Strict ER precautions given. Patient reports she does not have symptoms on discharge.. 04/01 08:49 Order name: CBC with Diff; Complete Time: 09:51 dr5 04/01 08:49 Order name: BMP; Complete Time: 09:37 dr5 04/01 08:49 Order name: UA Rfx Get Cult if indicated; Complete Time: 09:24 dr5 Administered Medications: 10:29 Drug: Ketorolac IVP 15 mg IVP once Route: IVP; Site: left antecubital; ph 10:46 Follow up: Response: No adverse reaction ph 10:29 Drug: Ondansetron IVP 4 mg IVP once; over 2 minutes Route: IVP; Site: left antecubital; ph 10:46 Follow up: Response: No adverse reaction ph 10:29 Drug: Rocephin IV 1 grams IV at per protocol once; Given slow IV push per pharmacy ph instructions Route: IV; Rate: per protocol; Site: left antecubital; 10:46 Follow up: Response: No adverse reaction; IV Status: Completed infusion ph Disposition Summary: 04/01/25 10:25 Discharge Ordered Notes: Location: Home dr5 Condition: Stable dr5 Diagnosis - UTI/ Urinary tract infection, site not specified dr5 Followup: dr5 - With: Emergency Department - When: As needed - Reason: Worsening of condition Followup: dr5 - With: Private Physician - When: 1 - 2 days - Reason: Recheck today's complaints, Continuance of care, Re-evaluation by your physician Discharge Instructions: - Discharge Summary Sheet dr5 - Urinary Tract Infection, Adult, [id number] dr5 Forms: - Medication Reconciliation Form dr5 - Antibiotic Education dr5 - Patient Portal Instructions dr5 - Leadership Thank You Letter dr5 Prescriptions: - Cephalexin 500 mg Oral Capsule - take 1 capsule ORAL route every 12 hours for 10 days; 20 capsule; Refills: 0, dr5 Product Selection Permitted - Fluconazole 150 mg Oral tablet - take 1 tablet ORAL route one time; 1 tablet; Refills: 0, Product Selection dr5 Permitted Signatures: Dispatcher [employer] Brissa Chakraborty, RN RN Gavino Everett RN RN [id number] Emery Solis, OIL WELL SERVICE OPERATOR HELPER-C OIL WELL SERVICE OPERATOR HELPER-Cdr5 Corrections: (The following items were deleted from the chart) 08:50 08:49 PMHx: Hypertension; federico jl7
--- NOTE | 2025-04-01 10:26 | ER ---
Nurse's Notes [facility] Name: Nancy Burgos Age: 70 yrs Sex: Female : 1955 Arrival Date: 04/01/2025 Time: 08:36 Bed 8 Private MD: Diagnosis: UTI/ Urinary tract infection, site not specified Presentation: 04/01 08:48 Chief complaint: Patient states: Suprapubic pain, radiates to back x 1 week. jl7 Coronavirus screen: At this time, the client does not indicate any symptoms associated with coronavirus-19. Ebola Screen: No symptoms or risks identified at this time. Initial Sepsis Screen: Does the patient meet any 2 criteria? No. Patient's initial sepsis screen is negative. Does the patient have a suspected source of infection? No. Patient's initial sepsis screen is negative. Risk Assessment: Do you want to hurt yourself or someone else? Patient reports no desire to harm self or others. Onset of symptoms was March 25, 2025. 08:48 Method Of Arrival: Ambulatory [facility] 08:48 Acuity: ZAINAB 3 jl7 Triage Assessment: 08:49 General: Appears in no apparent distress. uncomfortable, Behavior is calm, cooperative, jl7 appropriate for age. Pain: Complains of pain in suprapubic area Pain currently is 6 out of 10 on a pain scale. Musculoskeletal: Swelling absent. Historical: - Allergies: 08:49 No Known Allergies; jl7 - PMHx: 08:49 breast cancer; Diabetes - IDDM; Hypercholesterolemia; jl7 - PSHx: 08:49 Left Mastectomy; Appendectomy; Cholecystectomy; jl7 - Immunization history:: Adult Immunizations unknown. - Infectious Disease History:: Denies. - Social history:: Smoking status: Patient denies any tobacco usage or history of. Screenin:00 [facility] ED Fall Risk Assessment (Adult) History of falling in the last 3 months, af3 including since admission No falls in past 3 months (0 pts) Confusion or Disorientation No (0 pts) Intoxicated or Sedated No (0 pts) Impaired Gait No (0 pts) Mobility Assist Device Used No (0 pt) Altered Elimination No (0 pt) Score/Fall Risk Level 0 - 2 = Low Risk Oriented to surroundings, Maintained a safe environment. Abuse screen: Denies threats or abuse. Denies injuries from another. Nutritional screening: No deficits noted. Tuberculosis screening: No symptoms or risk factors identified. Assessment: 09:00 General: Appears in no apparent distress. comfortable, well groomed, well developed, af3 Behavior is calm, cooperative, appropriate for age. Pain: Complains of pain in right lower quadrant and left lower quadrant Pain radiates to left low back and right low back Pain currently is 6 out of 10 on a pain scale. Neuro: Level of Consciousness is awake, alert, obeys commands, Oriented to person, place, time, situation, Appropriate for age. Cardiovascular: Patient's skin is warm and dry. Respiratory: Airway is patent Respiratory effort is even, unlabored, Respiratory pattern is regular, symmetrical. GI: Reports lower abdominal pain. : No signs and/or symptoms were reported regarding the genitourinary system. EENT: No signs and/or symptoms were reported regarding the EENT system. Derm: Skin is intact, Skin is pink, warm \T\ dry. Musculoskeletal: Circulation, motion, and sensation intact. Range of motion: intact in all extremities. 10:29 Reassessment: Patient appears in no apparent distress at this time. Patient and/or ph family updated on plan of care and expected duration. Pain level reassessed. Patient is alert, oriented x 3, equal unlabored respirations, skin warm/dry/pink. Vital Signs: 08:48 BP 138 / 75; Pulse 87; Resp 15; Temp 98.8; Pulse Ox 98% ; Weight 68.04 kg; Height 5 ft. jl7 3 in. ; Pain 6/10; 10:29 BP 129 / 71; Pulse 75; Resp 18; Pulse Ox 100% on R/A; ph 08:48 Body Mass Index 26.57 (68.04 kg, 160.02 cm) jl7 08:48 Pain Scale: Adult jl7 ED Course: 08:39 Patient arrived in ED. mr 08:39 Emery Solis FNP-C [facility]. dr5 08:39 Lee Hernández MD is Attending Physician. dr5 08:48 Brissa De Leon RN is Primary Nurse. ph 08:49 Triage completed. jl7 08:49 Arm band placed on right wrist. jl7 09:00 Patient has correct armband on for positive identification. Bed in low position. Call af3 light in reach. Provided Education on: lab wait time, call light use . 09:00 No provider procedures requiring assistance completed. Initial lab(s) drawn, by me, af3 Urine collected: clean catch specimen. Inserted saline lock: 20 gauge in right antecubital area, using aseptic technique. Blood collected. Flushed with 10 mL NS. 09:13 BMP Sent. af3 09:13 UA Rfx Get Cult if indicated Sent. af3 09:13 CBC with Diff Sent. af3 10:46 IV discontinued, intact, bleeding controlled, No redness/swelling at site. Pressure ph dressing applied. Administered Medications: 10:29 Drug: Ketorolac IVP 15 mg IVP once Route: IVP; Site: left antecubital; ph 10:46 Follow up: Response: No adverse reaction ph 10:29 Drug: Ondansetron IVP 4 mg IVP once; over 2 minutes Route: IVP; Site: left antecubital; ph 10:46 Follow up: Response: No adverse reaction ph 10:29 Drug: Rocephin IV 1 grams IV at per protocol once; Given slow IV push per pharmacy ph instructions Route: IV; Rate: per protocol; Site: left antecubital; 10:46 Follow up: Response: No adverse reaction; IV Status: Completed infusion ph Medication: 09:00 VIS not applicable for this client. af3 Outcome: 10:25 Discharge ordered by . dr5 10:46 Discharged to home ambulatory, with significant other, ph 10:46 Condition: good 10:46 Discharge instructions given to patient, Instructed on discharge instructions, follow up and referral plans. medication usage, Demonstrated understanding of instructions, follow-up care, medications, 10:47 Patient left the ED. ph Signatures: Noemi Raymundo, Reg Reg mr Brissa De Leon, RN RN ph Gavino Morley RN RN jl7 Rossy Arias RN RN af3 Emery Solis, ENROLLMENT REPRESENTATIVE-C ENROLLMENT REPRESENTATIVE-Cdr5 Corrections: (The following items were deleted from the chart) 08:50 08:49 PMHx: Hypertension; federico jl7
[2025-04-01 13:30] VITALS: TEMP 98.8
[2025-04-01 13:36] VITALS: BP 129/71; O2SAT 100
== END 2025-04-01 10:47 | disposition home or self-care (01) ==
LOC: ER 08:36
DX: N39.0 Urinary tract infection, site not specified (principal)
CPT/HCPCS: 85025; 81001; 80048; 36415; J2405; J0696